=== PATIENT | male | born 1935 | race Caucasian/White ===

== ENCOUNTER 2017-03-02 06:23 | Observation (INO) | payer MEDICARE, OTHER ==
[~2017-03-02] VITALS: Ht 172.7 cm; Wt 88.9 kg
[2017-03-02 07:08] LABS: BASOPHILS 0.4 % (0.0-2.0); EOSINOPHILS 1.9 % (0-7); HEMATOCRIT 42.9 % (42.0-54.0); HEMOGLOBIN 14.6 g/dL (13.5-17.5); IMMATURE GRANULOCYTES 0.1 % (0-5); LYMPHOCYTES 23.2 % (15-50); MCH 31.3 pg (26.0-34.0); MCV 91.9 fL (80.0-100.0); MEAN PLATELET VOLUME 10.7 fL (7.4-10.4); MONOCYTES 8.6 % (2-11); NEUTROPHILS 65.8 % (40-80); PLATELET COUNT 162 10x3/uL (130-400); RBC 4.67 10x6/uL (4.20-6.10); RDW 12.4 % (11.5-14.5); WBC 8.3 10x3/uL (4.8-10.8)
[2017-03-02 07:38] LABS: ALBUMIN 3.8 g/dL (3.4-5.0); ANION GAP 13.2 mmol/L (8-16); CALCIUM 9.6 mg/dL (8.5-10.1); CARBON DIOXIDE 26.8 mmol/L (21.0-32.0); CREATININE - SERUM 1.5 mg/dL (0.6-1.3); PROTEIN - SERUM 6.7 g/dL (6.4-8.2)
[2017-03-02 07:47] LABS: THYROID STIMULATING HORMONE 0.35 uIU/mL (0.36-3.74)
[2017-03-02 07:55] LABS: CREATINE KINASE 178 UL (21-232); PRO BNP 420 pg/mL (0-450)
[2017-03-02 07:56] LABS: TROPONIN-I < 0.017 ng/mL (0.000-0.060)
--- NOTE | 2017-03-02 09:58 | NUR ---
0955-RECEIVED VIA WHEELCHAIR TO ROOM FOR THE ED WITH SALINE LOCK SEEN TO LEFT WRIST AREA. DENIES ANY SOB, CHEST PAIN, OR DIZZINESS. WILL ADMIT.
[2017-03-02 10:02] VITALS: BP 168/87; Ht 172.7 cm; Wt 88.9 kg
--- NOTE | 2017-03-02 10:29 | NUR ---
HEART MONITOR PLACED ON PAITENT ORDERED.
[2017-03-02 11:24] VITALS: BP 145/75
--- NOTE | 2017-03-02 12:34 | NUR ---
PATIENT'S TO DROP OFF HIS GLASSES, DENTURES, AND CELL PHONE. I ASKED HIM IF WE HAD A COPY OF THE MEDICATIONS TO BE PLACED INTO THE COMPUTER. HE CALLED HER AND SHE WILL CALL ME BACK WHEN SHE GETS HOME.
[2017-03-02] MEDS ORDERED: LEVOTHYROXINE125 MCG PO (13:32)
[2017-03-02] MEDS ORDERED: NORVASC5 MG PO (13:34)
[2017-03-02] MEDS ORDERED: ZOCOR40 MG PO (13:34)
[2017-03-02] MEDS ORDERED: ZEMPLAR1 MCG PO (13:34)
[2017-03-02] MEDS ORDERED: ZETIA10 MG PO (13:35)
[2017-03-02 15:25] VITALS: BP 140/77
--- NOTE | 2017-03-02 15:53 | NUR ---
DENIES NEEDS AT PRESENT TIME. WATCHING TV. WILL CONTINUE TO MONITOR.
[2017-03-02 19:00] VITALS: BP 146/84
--- NOTE | 2017-03-02 19:26 | NUR ---
ASSESSMENT COMPLETE, A&O, IROQUOIS. RESPERATIONS EVEN ON ROOM AIR. IV TO LEFT WRIST WITH D5 LR INFUSING AT 100, SITE CLEAN AND DRY. PT DENIES PAIN OR NEEDS, BED LOW, CL IN REACH.
--- NOTE | 2017-03-02 21:41 | NUR ---
HS MEDS GIVEN, PT STATED THAT HE TAKES ALL OF HIS MEDICATIONS AT BED TIME, CALL PLACED TO GEOVANNA IN PHARMACY ASKING IF HE CAN CHANGE ALL OF HIS MEDICATIONS, EXCEPT THE SYNTHROID TO PM DOSES INSTEAD OF AM DOSES.
[2017-03-03 00:34] VITALS: BP 135/79
--- NOTE | 2017-03-03 02:18 | NUR ---
RESTING WITH EYES CLOSED, RESPERATIONS EVEN, NO S/S DISTRESS NOTED.
[2017-03-03 04:00] VITALS: BP 117/70
[2017-03-03 05:41] LABS: BASOPHILS 0.5 % (0.0-2.0); EOSINOPHILS 3.9 % (0-7); HEMATOCRIT 39.4 % (42.0-54.0); HEMOGLOBIN 12.9 g/dL (13.5-17.5); IMMATURE GRANULOCYTES 0.2 % (0-5); LYMPHOCYTES 20.5 % (15-50); MCH 30.6 pg (26.0-34.0); MCHC 32.7 g/dL (31.0-37.0); MCV 93.6 fL (80.0-100.0); MEAN PLATELET VOLUME 10.7 fL (7.4-10.4); MONOCYTES 11.5 % (2-11); NEUTROPHILS 63.4 % (40-80); PLATELET COUNT 178 10x3/uL (130-400); RBC 4.21 10x6/uL (4.20-6.10); RDW 12.7 % (11.5-14.5)
[2017-03-03 06:16] LABS: CALC OSMOLALITY 283 mosm/kg (275-300); CALCIUM 8.5 mg/dL (8.5-10.1); CARBON DIOXIDE 25.5 mmol/L (21.0-32.0); CHLORIDE - SERUM 107 mmol/L (98-107); CREATININE - SERUM 1.3 mg/dL (0.6-1.3); GLUCOSE 90 mg/dL (74-106); PRO BNP 425 pg/mL (0-450); SODIUM 141 mmol/L (136-145); UREA NITROGEN 20 mg/dL (7-18); eGFR NON AFRICAN AMERICAN 56 mL/min (90-120)
[2017-03-03 06:17] LABS: TROPONIN-I < 0.017 ng/mL (0.000-0.060)
[2017-03-03 06:23] LABS: WBC 5.7 10x3/uL (4.8-10.8)
--- NOTE | 2017-03-03 07:00 | NUR ---
PT SITTING UP IN BED DENIES NEEDS WILL CONT TO MONITOR
[2017-03-03 07:49] VITALS: BP 131/69
--- NOTE | 2017-03-03 09:27 | NUR ---
DC PT PIV IN LEFT FA WITH CATH TIP INTACT AND PT TELE AND RETURNED TO DERRICK WORKER. WAITING ON DC PAPERWORK THEN WILL DC PT HOME WITH .
--- NOTE | 2017-03-03 09:38 | NUR ---
WENT OVER DC INSTRUCTIONS WITH PT PT VERBALIZES UNDERSTANDING. PT READY TO GO. CALLED FOR WHEELCHAIR TO TAKE PT DOWNSTAIRS TO FRONT ENTRANCE TO MEET AT CAR
== END 2017-03-03 10:07 | disposition home or self-care (01) ==
LOC: D.ER 06:23 → D.M2 08:59 → OBSVTIME 08:59 → D.M2 03-03 10:07
PROVIDERS: Emergency Medicine; ADMIT Family Medicine
DX: R55 Syncope and collapse (principal); E86.0 Dehydration

== ENCOUNTER → 2017-05-21 08:29 | Outpatient (CLI) | payer MEDICARE, OTHER ==
[2017-03-02 10:02] VITALS: BMI 27.1
[~2017-05-21 08:29] MED LIST: LEVOTHYROXINE125 MCG PO; NORVASC5 MG PO; ZEMPLAR1 MCG PO; ZETIA10 MG PO; ZOCOR40 MG PO
== END | disposition home or self-care (01) ==
LOC: D.MRI 08:29
DX: G45.9 Transient cerebral ischemic attack, unspecified (principal)

== ENCOUNTER 2017-06-17 06:07 | Day surgery (SDC) | payer MEDICARE, OTHER ==
[2017-06-16 12:18] LABS: BASOPHILS 0.9 % (0-2); HEMATOCRIT 42.1 % (42.0-54.0); HEMOGLOBIN 14.1 g/dL (13.5-17.5); IMMATURE GRANULOCYTES 0.4 % (0-5); LYMPHOCYTES 26.1 % (15-50); MCH 31.3 pg (26.0-34.0); MCHC 33.5 g/dL (31.0-37.0); MCV 93.6 fL (80.0-100.0); MONOCYTES 12.3 % (2-11); NEUTROPHILS 54.3 % (40-80); PLATELET COUNT 200 10x3/uL (130-400); RDW 12.9 % (11.5-14.5); WBC 4.6 10x3/uL (4.8-10.8)
[2017-06-16 12:29] LABS: APTT 27.5 SECONDS (22.8-39.4)
[2017-06-16 12:32] LABS: ANION GAP 10.2 mmol/L (8-16); CALCIUM 8.8 mg/dL (8.5-10.1); CARBON DIOXIDE 30.3 mmol/L (21.0-32.0); CREATININE - SERUM 1.5 mg/dL (0.6-1.3); POTASSIUM - SERUM 4.5 mmol/L (3.5-5.1)
[~2017-06-17] VITALS: Ht 170.2 cm; Wt 83.9 kg
[~2017-06-17 06:07] MED LIST changes: +ASPIRIN EC81 M1 PO
[2017-06-17 11:39] VITALS: BP 164/88; Ht 170.2 cm; Wt 83.9 kg
--- NOTE | 2017-06-17 15:19 | NUR ---
1450- PT BACK TO ROOM. HOB ELEVATED. AT BEDSIDE. VSS. WILL CONTINUE TO MONITOR. FULL LIQUIDS OFFERED. 1505- TOLERATING FULL LIQUIDS.
--- NOTE | 2017-06-17 17:02 | NUR ---
1525- UP TO BR, VOIDED WITHOUT DIFFICULTY. 1530- IV D/C'D, PT TOLERATED. CATHETER INTACT. 1545- DISCHARGE INSTRUCTIONS COMPLETED, PT VERBALIZED UNDERSTANDING. PAPER WORK SIGNED. 1550- PT DISCHARGED VIA WHEELCHAIR WITH .
--- NOTE | 2017-06-18 08:48 | OP ---
PATIENT NAME: NEWTON GARZA MEDICAL RECORD: [id number] :37 LOCATION:D.FORMERLY [facility] ADMISSION DATE: SURGEON: KLAUS JAIN MD DATE OF OPERATION: 06/17/2017 SURGEON: Klaus Jain MD ANESTHESIA: General anesthesia by Dr. Klaus Charlton. PREOPERATIVE DIAGNOSIS: Elevated PSA 12.34 with a hard nodule palpable on the left lateral prostatic lobe on rectal examination. PROCEDURE: Transrectal ultrasound and prostate biopsy. FINDINGS: 16.7 grams prostate, no hypoechoic areas. SPECIMENS: Prostate biopsy cores. ESTIMATED BLOOD LOSS: None. CLINICAL HISTORY: This is an 82-year-old male, who comes originally from [facility]. He was referred to me with an elevated PSA of 12.34. He does have normal sexual function and he is continent. There is no family history of prostate cancer. His father did have BPH and he required a TURP. His father lived into his 90s. On rectal examination, a hard nodule irregular in shape can be palpated in the left lobe of the prostate. He comes now to have a prostate biopsy. He has been taking Bactrim prophylaxis 2 days prior to the procedure. He also had a Fleet enema last night. Today, we gave him Ancef 2 grams and gentamicin 40 mg IV transportation dispatch manager to the OR. DESCRIPTION OF PROCEDURE: The patient was given induction of general anesthesia. We then placed him in the dorsal lithotomy position and prepped him. The transrectal ultrasound probe was placed into the rectum. Prostate size measurements were obtained. The prostate is relatively small. No hypoechoic areas were seen. A sextant biopsy was obtained. The prostate was divided into 6 sectors. There was the right and left sides and then each side had the apex, mid and basal sectors. From each sector, we obtained at least 3 cores of good tissue using a 21-gauge biopsy gun. Once we had sufficient specimens, the procedure was terminated. The patient was awakened and brought to the recovery room. I will see him in followup in 1-2 weeks' time to review the pathology with him. TRANSINT:[id number] Voice Confirmation ID: [id number] DOCUMENT ID: [id number] KLAUS JAIN MD at 0848 CC: [id number] DICTATION DATE: 06/17/17 142 AUTOMOTIVE WARRANTY ADMINISTRATOR: 06/17/171915 [facility] 06/17/17 [facility] [address] [id number]
== END 2017-06-17 15:50 | disposition home or self-care (01) ==
LOC: D.OPS 06:07 → D.PAN 11:15 → D.OPS 11:45
PROVIDERS: Anesthesiology
DX: N40.2 Nodular prostate without lower urinary tract symptoms (principal); R97.20 Elevated prostate specific antigen [PSA]; I10 Essential (primary) hypertension; Z01.812 Encounter for preprocedural laboratory examination

== ENCOUNTER → 2017-06-29 18:41 | Outpatient (CLI) | payer MEDICARE, OTHER ==
[2017-06-17 11:39] VITALS: BMI 29.0
[2017-06-29 20:29] LABS: APPEARANCE CLEAR (CLEAR); BILIRUBIN NEGATIVE (NEGATIVE); COLOR DK YELLOW (YELLOW); GLUCOSE NEGATIVE (NEGATIVE); KETONE NEGATIVE (NEGATIVE); LEUKOCYTE ESTERASE NEGATIVE (NEGATIVE); NITRITE NEGATIVE (NEGATIVE); PROTEIN NEGATIVE (NEGATIVE); UROBILINOGEN NORMAL (NORMAL)
[2017-06-29 20:32] LABS: BACTERIA FEW /hpf (NONE SEEN); WHITE CELLS - URINE 0-5 /hpf (0-5)
== END | disposition home or self-care (01) ==
LOC: D.LABREF 18:41
PROVIDERS: Urology
DX: R31.9 Hematuria, unspecified (principal)

== ENCOUNTER → 2017-07-01 09:19 | Outpatient (CLI) | payer MEDICARE, OTHER ==
[2017-06-17 11:39] VITALS: BMI 29.0
== END | disposition home or self-care (01) ==
LOC: D.NM 09:19
DX: C25.9 Malignant neoplasm of pancreas, unspecified (principal)

== ENCOUNTER → 2017-07-29 06:49 | Outpatient (CLI) | payer MEDICARE, OTHER | END | disposition home or self-care (01) | LOC: D.CATH 06:49 | DX: R55 Syncope and collapse (principal); R00.1 Bradycardia, unspecified; I10 Essential (primary) hypertension; Z01.812 Encounter for preprocedural laboratory examination ==

== ENCOUNTER → 2017-08-10 08:46 | Outpatient (CLI) | payer MEDICARE, OTHER ==
[2017-07-29 07:21] VITALS: BMI 28.4
--- NOTE | ~2017-08-10 | EC ---
PATIENT:NEWTON GARZA DATE OF SERVICE: 08/10/17 SEX: M MEDICAL RECORD: [id number] DATE OF : 37 LOCATION:[facility] AGE OF PATIENT: 82 ADMISSION DATE: 08/10/17 REFERRING PHYSICIAN: INTERPRETING PHYSICIAN: KHALIDA PUGA MD ECHOCARDIOGRAM REPORT ECHO CHARGES 4 ECHO COMPLETE CLINICAL DIAGNOSIS: HTN/BRADYCARDIA ECHOCARDIOGRAPHIC MEASUREMENTS (adult normal given) AC root (d.<3.7cm) 3.5 cm LV Septum d (<1.2 cm> 1.5 cm Valve Excursion 1.7 cm LV Septum (systole) 1.8 cm Left Atria (s.<4.0cm> 3.8 cm LVPW d(<1.2cm) 1.2 cm RV (d.<2.3cm) 3.7 cm LVPW (sytole) 1.6 cm LV diastole(<5.6CM) 5.7 cm MV E-F(>70mm/sec) cm LV systole 4.3 cm LVOT Diameter 2.2 cm MV exc.(>10mm) 1.7 cm Est.ejection fraction (50-75%) % Pericardial Effusion N DOPPLER: LVIT cm/sec A 74.0 cm/sec E 67.0 cm/sec LA cm/sec RVSP 38 mmHg LVOT 96 cm/sec AOP1/2T m/s Asc. Ao 130 cm/sec RVOT 64 cm/sec RA cm/sec PA 105 cm/sec AV Gradient Peak 6.77 mmHg AV Mean 2.96 mmHg AV Area 1.9 cm MV Gradient Peak 2.26 mmHg MV Mean 0.91 mmHg MV Area cm COMMENTS: Label Paster: Denae NEWELL Child Day Care Teacher: Alexx Puga TAPE# PACS DATE OF SERVICE: 08/10/2017 PROCEDURE: Transthoracic echocardiogram. FINDINGS: 1. The left ventricle is shown to have moderate concentric left ventricular hypertrophy with preserved left ventricular function with an ejection fraction of 60%. 2. The inflow characteristics across the mitral valve indicate diastolic dysfunction. ECHOCARDIOGRAM REPORT [id number] NEWTON GARZA 3. The mitral valve has mild mitral regurgitation, but structurally is grossly normal. 4. The left atrium is shown to be in the upper limits of normal size and normal function. 5. The right atrium has moderate dilatation. 6. The right ventricle has mild dilatation with normal function. 7. The tricuspid valve is shown to have mild tricuspid regurgitation with an estimated right ventricular systolic pressure of 30 mmHg to 35 mmHg. 8. The pulmonic valve, although not well visualized, is structurally normal. 9. The pericardium is normal. 10. The IVC is shown to be of normal size and collapses normally. IMPRESSION: The patient has evidence of hypertensive heart disease as well as mild right ventricular hypertrophy and dilatation and mild elevations in right-sided pressures. No significant valvular abnormalities. TRANSINT:[id number] Voice Confirmation ID: [id number] DOCUMENT ID: [id number] KHALIDA PUGA MD CC: [id number] DICTATION DATE: 08/10/17 1544 AUTO BODY REPAIRER: 08/10/[address] [facility] [address] [place] [address]
== END | disposition home or self-care (01) ==
LOC: D.ECHO 08:46
DX: I10 Essential (primary) hypertension (principal); R00.1 Bradycardia, unspecified

== ENCOUNTER → 2017-08-23 06:34 | Outpatient (CLI) | payer MEDICARE, OTHER ==
--- NOTE | ~2017-08-23 | HEMODYNAMI ---
PATIENT:NEWTON GARZA MEDICAL RECORD: [id number] : 37 LOCATION:[facility] ADMISSION DATE: 08/23/17 Generatedon:08/23/20179:23 Patient name: NEWTON GARZA Patient #: [id number] SSN : : 1935 Date of study: 08/23/2017 Page: Of Hemodynamic Procedure Report Patient Data Patient Demographics Procedure consent was obtained First Name: NEWTON Gender: Male Last Name: GREG : 1935 Patient #: [id number] Age: 82 year(s) Race: Unknown Additional ID: [id number] Contact details [address]: [address] [place] [address] State: [place] City: [place] Zip code: [address] Past Medical History Allergies: No known allergies Admission Admission Data Admission Date: 08/23/2017 Admission Time: 6:34 Lab Results Lab Result Date: 08/23/2017 Lab Result Time: 0:00 Biochemistry Name Units Result Min Max Creatinine mg/dl 1.6 --(----)-* 0.6 1.3 CBC Name Units Result Min Max Hemoglobin g/dl 14.2 --(*---)-- 13.5 17.5 Procedure Procedure Types Cath Procedure Diagnostic Procedure [facility] Coronaries only PCI Procedure Coronary Stent Initial Miscellaneous Procedures Moderate Sedation up to 30 minutes Procedure Description Procedure Date Procedure Date: 08/23/2017 Procedure Start Time: 8:49 Procedure End Time: 9:16 Procedure Staff Name Function Austin Valero MD Performing Physician Bentley Juarez RN Nurse Sara Conroy RT Monitor Gregory Casas RT Scrub Procedure Data Cath Procedure Fluoroscopy Diagnostic fluoroscopy Total fluoroscopy Time: 8.3 time: 8.3 min min Contrast Material Contrast Material Type Amount (ml) Isovue 300 85 Entry Location Entry Primary Successful Side Size Upsize Upsize Entry Closure Succes sful Closure Location (Fr) 1 (Fr) 2 (Fr) Remarks Device Remarks Radial Right 6 Fr Exoseal artery Short Estimated blood loss: 10 ml Diagnostic catheters Device Type Used For End Catheter Placement Terumo 5Fr Juanjose 110cm Left Coronary catheter Angiography Terumo 5Fr Juanjose 110cm Right Coronary catheter Angiography Procedure Complications No complications Procedure Medications Medication Administration Route Dosage 0.9% NaCl I.V. 100 ml/hr Oxygen NC 2 l/min Heparin Flush Bag added to field 2 bags (1000units/500ml NS) Lidocaine 2% added to field 20 Radial Cocktail added to field 1 syringe (Verapomil 2mg/Nitro 400mcg/Heparin 1500units) Versed I.V. 1 mg Fentanyl I.V. 25 mcg Radial Cocktail I.A. 1 syringe (Verapomil 2mg/Nitro 400mcg/Heparin 1500units) Angiomax (bolus) I.V. 12 ml Angiomax Drip I.V. drip 28 ml/hr (250mg/50ml NS) (Standard) Plavix P.O. 300 mg Hemodynamics Rest HGB: 14.2 (g/dl) Heart Rate: 66 (bpm) Snapshots Pre Cath Intra NCS Post Cath Vital Signs Time Heart Resp SPO2 etCO2 [id number] NIBP (mmHg) Rhythm Pain Sedation Rate (ipm) (%) (mmHg) (mmHg) Status Level (bpm) 8:32:27 66 16 100 0 0 164/112(137) NSR 0 (11) 10(A) , No pain 8:37:13 65 14 99 0 0 156/109(139) NSR 0 (11) 10(A) , No pain 8:41:58 65 13 99 0 0 153/94(119) NSR 0 (11) 10(A) , No pain 8:46:43 63 10 99 0 0 155/87(113) NSR 0 (11) 10(A) , No pain 8:51:25 61 17 99 0 0 153/94(120) NSR 0 (11) 9(A) , No pain 8:56:04 68 16 94 0 0 119/77(91) NSR 0 (11) 9(A) , No pain 9:00:41 65 18 95 0 0 124/76(95) NSR 0 (11) 9(A) , No pain 9:05:17 63 13 96 0 0 128/79(95) NSR 0 (11) 9(A) , No pain 9:09:56 61 10 98 0 0 126/76(93) NSR 0 (11) 9(A) , No pain 9:14:32 61 18 0 0 121/81(99) NSR 0 (11) 10(A) , No pain Medications Time Medication Route Dose Verified Delivered Reason Notes Effectiveness by by 8:31:29 0.9% NaCl I.V. 100 Bentley Bentley Per physician ml/hr Ann Juarez RN RN 8:31:43 Oxygen NC 2 l/min Bentley Bentley Per physician Ann Juarez RN RN 8:32:00 Heparin Flush added 2 bags Bentley Bentley used for Bag to Ann Juarez procedure (1000units/500ml field RN RN NS) 8:32:15 Lidocaine 2% added 20ml Bentley Bentley for local to vial Lorigan Ann anesthetic RN RN 8:32:38 Radial Cocktail added 1 Bentley Bentley used for (Verapomil to syringe Ann Juarez procedure 2mg/Nitro RN RN 400mcg/Heparin 1500units) 8:48:12 Versed I.V. 1 mg Bentley Bentley for sedation Ann Juarez RN RN 8:48:30 Fentanyl I.V. 25 mcg Bentley Bentley for sedation Ann Juarez RN RN 8:51:50 Radial Cocktail I.A. 1 Bentley Austin for (Verapomil syringe Ann Norred MD vasodilation 2mg/Nitro RN 400mcg/Heparin 1500units) 9:10:16 Angiomax (bolus) I.V. 12 ml Bentley Bentley for Ann Juarez anticoagulation RN RN 9:10:44 Angiomax Drip I.V. 28 Bentley Bentley for (250mg/50ml NS) drip ml/hr Ann Juarez anticoagulation (Standard) RN RN 9:21:57 Plavix P.O. 300 mg Bentley Bentley for Ann Juarez antiplatelet RN RN therapy Procedure Log Time Note 8:16:36 Sara Conroy RT(R) sent for patient. Start room use. 8:16:37 Time tracking: Regular hours 8:16:40 Plan of Care:Hemodynamics will remain stable., Cardiac rhythm will remain stable., Comfort level will be maintained., Respiratory function will remain adequate., Patient/ family verbilizes understanding of procedure., Procedure tolerated without complication., Recovers from procedure without complications.. 8:25:07 Patient received from Pre/Post Procedure Room to CCL 1 Alert and oriented. Tansferred to table in Supine position. 8:25:08 Warm blankets applied, and rachelle hugger turned on for patient comfort. 8:25:09 Correct patient and procedure confirmed by team. 8:25:11 Signed procedure consent form obtained from patient. 8:25:12 ECG and BP/O2 sat monitors applied to patient. 8:25:24 H&P Date Dictated: 08/17/2017 Within 30 days and on chart., H&P Addendum completed by physician on day of procedure. (MUST COMPLETE FOR ALL OUTPATIENTS). 8:25:25 Pre-procedure instructions explained to patient. 8:25:26 Pre-op teaching completed and patient verbalized understanding. 8:25:29 Family in waiting room. 8:25:30 Patient NPO since Midnight. 8:25:38 Patient allergic to No known allergies 8:25:41 Is the patient allergic to Iodine/contrast media? No. 8:30:55 Vital chart was started 8:31:29 0.9% NaCl 100 ml/hr I.V. was administered by Bentley Juarez RN; Per physician; 8:31:43 Oxygen 2 l/min NC was administered by Bentley Juarez RN; Per physician; 8:32:00 Heparin Flush Bag (1000units/500ml NS) 2 bags added to field was administered by Bentley Juarez RN; used for procedure; 8:32:15 Lidocaine 2% 20ml vial added to field was administered by Bentley Juarez RN; for local anesthetic; 8:32:38 Radial Cocktail (Verapomil 2mg/Nitro 400mcg/Heparin 1500units) 1 syringe added to field was administered by Bentley Juarez RN; used for procedure; 8:33:49 Is patient on blood thinner?Yes 8:33:54 ACC The patient was administered the following blood thiners within the last 24 hours: ACCPlavix 8:34:13 Plavix 300mg given this AM. 8:34:15 Patient diabetic? No. 8:34:19 Previous problem with sedation/anesthesia? No ? 8:34:21 Snore? No 8:34:22 Sleep apnea? No 8:34:23 Deviated septum? No 8:34:24 Opens mouth fully? Yes 8:34:25 Sticks out tongue? Yes 8:34:27 Airway obstruction? No ? 8:34:32 Dentures? Yes IN 8:34:36 Pre procedure: right dorsailis pedis pulse 2+ Normal; easily identifiable; not easily obliterated 8:34:39 Modified Cameron's test Ulnar < 7 seconds 8:34:42 Patient pain scale 0/10 ?. 8:35:19 IV patent on arrival in left hand with 0.9% NaCl at [facility]. 8:36:02 Lab Result : Creatinine 1.6 mg/dl 8:36:02 Lab Result : Hemoglobin 14.2 g/dl 8:36:05 Lab results completed and on chart. 8:36:09 Right Radial & Right Groin area was prepped with chlora-prep and draped in sterile fashion 8:36:10 Alarms reviewed by R. N. 8:36:11 Sharps counted by scrub and verified by R.N. 8:36:15 Use device set Radial Dx 8:36:16 Acist Syringe opened to sterile field. 8:36:16 Medline Cath Pack opened to sterile field. 8:36:17 Bag Decanter opened to sterile field. 8:36:17 Terumo 6Fr Slender Glidesheath opened to sterile field. 8:36:17 St Sean 260cm J .035 wire opened to sterile field. 8:36:17 Acist Hand Control opened to sterile field. 8:36:18 Acist Manifold opened to sterile field. 8:36:18 Tegaderm 4 x 4 opened to sterile field. 8:36:18 MBrace Wrist Support opened to sterile field. 8:38:12 Rhythm: sinus rhythm 8:38:14 Baseline sample Acquired. 8:38:15 Full Disclosure recording started 8:41:17 Final Timeout: patient, procedure, and site verified with staff and physician. All members of the team are in agreement. 8:41:22 Right Radial site verified by team. 8:41:24 Physical assessment completed. ASA score P 2 - A patient with mild systemic disease as per Austin Valero MD. 8:41:27 Sedation plan: IV Moderate Sedation Versed, Fentanyl 8:48:12 Versed 1 mg I.V. was administered by Bentley Juarez RN; for sedation; 8:48:30 Fentanyl 25 mcg I.V. was administered by Bentley Juarez RN; for sedation; 8:49:48 Procedure started. 8:49:55 Local anesthetic to right radial artery with Lidocaine 2% by Austin Valero MD.INITIAL ACCESS ONLY 8:50:02 A 6 Fr Short sheath was inserted into the Right Radial artery 8:50:24 Zero performed for pressure channel P1 8:51:41 A Terumo 5Fr Juanjose 110cm catheter was advanced over the wire and used for Left Coronary Angiography. 8:51:50 Radial Cocktail (Verapomil 2mg/Nitro 400mcg/Heparin 1500units) 1 syringe I.A. was administered by Austin Valero MD; for vasodilation; 8:54:03 Terumo ANGLE 260cm glide wire opened to sterile field. 8:54:51 Exchange glide wire advanced. 9:00:02 A Terumo 5Fr Juanjose 110cm catheter was advanced over the wire and used for Right Coronary Angiography. 9:03:24 SproutBoxW [place] II J-Tip 190cm wire opened to sterile field. 9:03:24 Shot Stats BasixCompak Inflation Kit opened to sterile field. 9:03:25 Medtronic Launcher 6Fr AR 1.0 guide catheter opened to sterile field. 9:03:37 Copilot Bleedback Control Valve opened to sterile field. 9:04:20 6 Fr AR 1.0 guide catheter was inserted over the wire 9:08:13 BMW wire advanced. 9:10:16 Angiomax (bolus) 12 ml I.V. was administered by Bentley Juarez RN; for anticoagulation; 9:10:44 Angiomax Drip (250mg/50ml NS) (Standard) 28 ml/hr I.V. drip was administered by Bentley Juarez RN; for anticoagulation; 9:11:38 Inflation Number: 1 A Slade RX 3.5 x 18 stent was prepped and advanced across the Mid RCA. The stent was deployed at 16 ANIBAL for 0:26 (min:sec). 9:12:33 Stent catheter was removed intact over wire. 9:12:33 Wire removed. 9:12:34 Guide catheter removed. 9:12:55 Sheath removed intact; hemostasis achieved with Exoseal to the Right Radial artery. 9:12:57 Procedure ended.(Physican Out) 9:13:06 Fluoroscopy time 08.30 minutes. 9:13:22 Contrast amount:Isovue 300 85ml. 9:13:23 Sharps counted by scrub and verified by R.N. 9:13:25 TR band inflated with 12cc of air. 9:13:26 Insertion/operative site no bleeding no hematoma. 9:13:32 Post right radial artery:stable, clean and dry 9:13:34 Post Procedure Pulses reassessed and unchanged 9:13:37 Post-procedure physical assessment completed. ASA score P 2 - A patient with mild systemic disease as per Austin Valero MD. 9:13:40 Post procedure rhythm: unchanged. 9:13:43 Estimated blood loss: 10 ml 9:13:45 Post procedure instruction explained to patient.Patient verbalizes understanding. 9:13:47 Patient needs reinforcement of post procedure teaching. 9:14:02 Procedure type changed to Cath procedure, Diagnostic procedure, LHC, Coronaries only, PCI procedure, Coronary Stent Initial, Miscellaneous Procedures, Moderate Sedation up to 30 minutes 9:14:08 Procedure Complication : No complications 9:14:14 See physician's report for complete and final results. 9:14:30 Terumo TR Band Standard opened to sterile field. 9:16:24 Procedure and supply charges have been captured, reviewed, submitted and are correct. 9:16:25 Vital chart was stopped 9:21:57 Plavix 300 mg P.O. was administered by Bentley Juarez RN; for antiplatelet therapy; 9:22:20 Report given to Pre/Post Procedure Room. 9:22:23 Patient transfered to Pre/Post Procedure Room with Stretcher. 9:22:33 End room use (Document Last) Intervention Summary Intervention Notes Time ActionType Lesion and Equipment Action# Pressure Duration Attributes Used 9:11:38 Place stent Mid RCA Yoakum RX 1 16 00:26 3.5 x 18 stent Device Usage Item Name Manufacture Quantity Catalog Hospital Part Current Minim al Lot# / Number Charge Number Stock Stock Serial# Code Acist Acist 1 30152 416886 360103 622986 20 Apogee Photonics Medical [employer] Inc Medline Cardinal 1 [id number] 463360 95383 470389 5 Cath Pack Health Bag Microtek 1 2001S 127384 35703 562923 5 Decanter Medical Inc. Terumo 6Fr Terumo 1 [id number] 838076 173633 119557 [address] Sean 1 872877 711336 546502 187089 30 260cm J .035 wire Acist Hand Acist 1 23257 980676 157971 482317 5 Control Medical Systems Inc Acist Acist 1 42147 283298 520285 897660 5 Manifold Medical Systems Inc Tegaderm 4 3M 1 [id number] 602063 578353 601987 5 x 4 MBrace Advanced 1 140-0250-00 114275 70646 148036 5 Wrist Vascular Support Dynamics Terumo 5Fr Terumo 1 40-9713 986140 527474 048784 5 Juanjose 110cm catheter Terumo Terumo 1 [id number] 689464 819541 534890 5 ANGLE 260cm glide wire Lima BMW [place] 1 [id number] 584333 66328 289890 5 [place] Vascular II J-Tip 190cm wire Merit Merit 1 [id number] 294530 534902 291896 15 BasixCompak Medical Inflation Kit Medtronic Medtronic 1 [id number] 990740 43262 259258 1 Launcher 6Fr [place] 1.0 guide catheter Copilot [place] 1 2006189 228986 715461 836652 5 Bleedback Vascular Control Valve Yoakum RX 3.5 Medtronic 1 [id number] 834029 5098089 763151 5 [id number] x 18 stent Terumo TR Terumo 1 [id number] 130501 062800 446920 40 Band Standard Signature Audit [place] Stage Time Signature Unsigned Intra-Procedure 08/23/2017 Sara 9:23:18 AM Counts RT(R) Signatures Monitor : Sara Signature : Counts RT Date : Time : [facility] [address] [place] [address]
[~2017-08-23 06:34] MED LIST changes: +PLAVIX75 MG PO
[2017-08-23 07:09] VITALS: BP 143/78; BMI 26.8
[2017-08-23 07:13] LABS: BASOPHILS 0.8 % (0-2); EOSINOPHILS 5.7 % (0-7); HEMOGLOBIN 14.2 g/dL (13.5-17.5); IMMATURE GRANULOCYTES 0.2 % (0-5); LYMPHOCYTES 23.2 % (15-50); MCH 31.1 pg (26.0-34.0); MCV 94.1 fL (80.0-100.0); MEAN PLATELET VOLUME 10.2 fL (7.4-10.4); MONOCYTES 12.1 % (2-11); PLATELET COUNT 163 10x3/uL (130-400); RBC 4.57 10x6/uL (4.20-6.10); RDW 12.9 % (11.5-14.5); WBC 4.9 10x3/uL (4.8-10.8)
[2017-08-23 07:22] LABS: ANION GAP 9.4 mmol/L (8-16); CALCIUM 9.5 mg/dL (8.5-10.1); CARBON DIOXIDE 29.9 mmol/L (21.0-32.0); CREATININE - SERUM 1.6 mg/dL (0.6-1.3); POTASSIUM - SERUM 4.3 mmol/L (3.5-5.1)
--- NOTE | 2017-08-23 09:30 | NUR ---
0930 RECIEVED TO ROOM VIA STRETCHER FROM [employer]DLES [facility]ANGER WITH REPORTS OF ONE STENT TO THE RCA. TR BAND TO R/WRIST CDI NO BLEEDING NO HEMATOMA NOTED. DR PUGA PRESENT TO SPEAK WITH PATIENT. VSS
--- NOTE | 2017-08-23 10:02 | NUR ---
RESTING QUIETLY WITH CHEST PAIN DENIED TR BAND TO R/WRIST CDI NO BLEEDING NO HEMATOMA NOTED. VSS
--- NOTE | 2017-08-23 10:13 | NUR ---
REPOSITIONED TO SITTING WITH HOB UP 30 DEGREES. SANDWICH AND COFFEE TO BEDSIDE CHEST PAIN DENIED. TR BAND REMAINS CDI
--- NOTE | 2017-08-23 10:41 | NUR ---
WATCHING TV IN ROOM WITH AT SIDE VOICED NO PAIN OR NEEDS TR BAND REMAINS TO R/WRIST CDI
--- NOTE | 2017-08-23 11:09 | NUR ---
RESTING QUIETLY NO DISTRESS NOTED TR BAND REMAINS TO R/WRIST CDI NO BLEEDING NO HEMATOMA NOTED. VSS WITH CHEST PAIN DENIED
--- NOTE | 2017-08-23 11:13 | NUR ---
4 CC AIR REMOVED FROM TR BAND NO BLEEDING NO HEMATOMA NOTED 1145 4 CC AIR REMOVED FROM TR BAND NO BLEEDING NO HEMATOMA NOTED.
--- NOTE | 2017-08-23 12:00 | NUR ---
1200 4 CC AIR REMOVED FROM TR BAND NO BLEEDING NO HEMATOMA NOTED. PATIEN UP TO GET DRESSED WITH PIV REMOVED AND DRESSING APPLIED. 1230 VSS WITH CHEST PAIN DENIED VERBAL AND WRITTEN DISCHARGE GONE OVER WITH PATIENT AND FAMILY BOTH VERBALIZED UNDERSTANDING. 1245 LEFT VIA WC TO PARKING FOR TRANSPORT HOME NO DISTRESS NO CHEST PAIN .
--- NOTE | 2017-08-23 12:02 | NUR ---
4 CC AIR REMOVED FROM TR BAND WITH NO BLEEDING NO HEMATOMA NOTED. VSS
--- NOTE | 2017-08-23 12:05 | NUR ---
2 CC AIR REMOVED FROM TR BAND WITH NO BLEEDING NO HEMATOMA NOTED. VSS
== END | disposition home or self-care (01) ==
LOC: D.CATH 06:34
PROVIDERS: Internal Medicine Cardiovascular Disease
DX: I25.10 Atherosclerotic heart disease of native coronary artery without angina pectoris (principal); R00.1 Bradycardia, unspecified; R07.9 Chest pain, unspecified; I10 Essential (primary) hypertension; R94.30 Abnormal result of cardiovascular function study, unspecified; R06.09 Other forms of dyspnea; Z01.812 Encounter for preprocedural laboratory examination
CPT/HCPCS: 93458; C9600

== ENCOUNTER → 2017-10-14 18:33 | Outpatient (CLI) | payer MEDICARE, OTHER ==
[2017-08-23 07:09] VITALS: BMI 26.8
[2017-10-14 19:34] LABS: CHOL - HDL RATIO 1.6 ratio (2.3-4.9); LDL-HDL RATIO 0.5 ratio (1.5-3.5)
== END | disposition home or self-care (01) ==
LOC: D.LABREF 18:33
PROVIDERS: Internal Medicine Cardiovascular Disease
DX: E78.5 Hyperlipidemia, unspecified (principal)

== ENCOUNTER → 2017-11-01 13:42 | Outpatient (CLI) | payer MEDICARE, OTHER ==
[2017-08-23 07:09] VITALS: BMI 26.8
== END | disposition home or self-care (01) ==
LOC: D.US 13:42
DX: I25.10 Atherosclerotic heart disease of native coronary artery without angina pectoris (principal); I42.9 Cardiomyopathy, unspecified; R09.89 Other specified symptoms and signs involving the circulatory and respiratory systems; R55 Syncope and collapse; E78.00 Pure hypercholesterolemia, unspecified

== ENCOUNTER → 2018-02-02 12:10 | Outpatient (CLI) | payer MEDICARE, OTHER ==
[2017-08-23 07:09] VITALS: BMI 26.8
--- NOTE | ~2018-02-02 | EC ---
PATIENT:NEWTON GARZA DATE OF SERVICE: 02/02/18 SEX: M MEDICAL RECORD: [id number] DATE OF : 37 LOCATION:D.COUNT INCLUDES THE [facility] AGE OF PATIENT: 82 ADMISSION DATE: 02/02/18 REFERRING PHYSICIAN: INTERPRETING PHYSICIAN: KHALIDA PUGA MD ECHOCARDIOGRAM REPORT ECHO CHARGES 4 ECHO COMPLETE CLINICAL DIAGNOSIS: PALPITATIONS/DYSPNEA/SYNCOPE/ CAD ECHOCARDIOGRAPHIC MEASUREMENTS (adult normal given) AC root (d.<3.7cm) 4.0 cm LV Septum d (<1.2 cm> 1.7 cm Valve Excursion 2.4 cm LV Septum (systole) 2.2 cm Left Atria (s.<4.0cm> 4.2 cm LVPW d(<1.2cm) 1.5 cm RV (d.<2.3cm) 2.8 cm LVPW (sytole) 2.1 cm LV diastole(<5.6CM) 5.2 cm MV E-F(>70mm/sec) cm LV systole 3.1 cm LVOT Diameter 2.0 cm MV exc.(>10mm) cm Est.ejection fraction (50-75%) % Pericardial Effusion N DOPPLER: LVIT cm/sec A 45.0 cm/sec E 58.0 cm/sec LA cm/sec RVSP 43.0 mmHg LVOT 83.0 cm/sec AOP1/2T m/s Asc. Ao 114 cm/sec RVOT 60.0 cm/sec RA cm/sec PA 76.0 cm/sec AV Gradient Peak 5.2 mmHg AV Mean 2.8 mmHg AV Area 2.3 cm MV Gradient Peak 2.1 mmHg MV Mean 0.81 mmHg MV Area cm COMMENTS: Informatics Analyst: Braxton JONESOE Rn Cvor: Alexx Puga TAPE# PACS DATE OF SERVICE: 02/02/2018 TRANSTHORACIC ECHOCARDIOGRAM FINDINGS: 1. The left ventricle shows moderate concentric left ventricular hypertrophy with inflow characteristics that are normal. 2. There is mild lateral hypokinesis. The overall ejection fraction is 50%. 3. The left atrium is mildly dilated. 4. The aortic valve is normal. ECHOCARDIOGRAM REPORT [id number] NEWTON GARZA 5. The tricuspid valve has moderate tricuspid regurgitation. RVSP is approximately 35-40 mmHg. 6. The right ventricle is normal. 7. The right atrium has mild dilatation. 8. Pericardium is normal. CONCLUSIONS: The patient has evidence of hypertensive heart disease with mild lateral hypokinesis and mild pulmonary hypertension. TRANSINT:[id number] Voice Confirmation ID: [id number] DOCUMENT ID: [id number] KHALIDA PUGA MD at 0755 CC: [id number] DICTATION DATE: 02/02/18 1627 INSTRUMENT REPAIR SUPERVISOR: 02/02/18 1802 DEP CLI 02/02/18 [id number] [place] [address]
[~2018-02-02 12:10] MED LIST changes: +FLOMAX0.4 MG PO; +KEFLEX500 MG PO; +LEVOTHYROXINE112 MCG PO; +SYNTHROID112 MCG PO; +ZOCOR20 MG PO
== END | disposition home or self-care (01) ==
LOC: D.ECHO 12:10
DX: I25.10 Atherosclerotic heart disease of native coronary artery without angina pectoris (principal); R00.2 Palpitations; R09.89 Other specified symptoms and signs involving the circulatory and respiratory systems; R06.02 Shortness of breath; R55 Syncope and collapse

== ENCOUNTER 2018-02-14 02:06 | Inpatient (IN) | payer MEDICARE, OTHER ==
[~2018-02-14] VITALS: Ht 175.3 cm; Wt 85.0 kg
--- NOTE | ~2018-02-14 | HEMODYNAMI ---
PATIENT:NEWTON GARZA MEDICAL RECORD: [id number] : 37 [facility] [id number] ADMISSION DATE: 02/14/18 Generatedon:02/15/201810:47 Patient name: NEWTON GARZA Patient #: [id number] SSN : : 1935 Date of study: 02/15/2018 Page: Of Hemodynamic Procedure Report Patient Data Patient Demographics Procedure consent was obtained First Name: NEWTON Gender: Male Last Name: GREG : 1935 Patient #: [id number] Age: 82 year(s) Race: Unknown Additional ID: [id number] Contact details [address]: [address] [place] [address] State: [place] City: [place] Zip code: [address] Past Medical History Allergies: No known allergies Admission Admission Data Admission Date: 02/14/2018 Admission Time: 3:58 Admit Source: Other Room #: D.2117 Lab Results Lab Result Date: 02/14/2018 Lab Result Time: 2:15 Biochemistry Name Units Result Min Max BUN mg/dl 28 --(----)-* 7 18 Creatinine mg/dl 1.5 --(----)-* 0.6 1.3 CBC Name Units Result Min Max Hematocrit % 41 -*(----)-- 42 54 Hemoglobin g/dl 13.8 --(*---)-- 13.5 17.5 Procedure Procedure Types Cath Procedure Diagnostic Procedure PPM/ICD PPM Dual Implant Sedation Charges Moderate Sedation up to 30 minutes Procedure Description Procedure Date Procedure Date: 02/15/2018 Procedure Start Time: 10:15 Procedure End Time: 10:46 Procedure Staff Name Function Austin Valero MD Performing Physician Jose Gutiérrez RN Nurse Sintia Koch RT Monitor Gregory Casas RT Scrub Procedure Data Cath Procedure Fluoroscopy Diagnostic fluoroscopy Total fluoroscopy Time: 3.3 time: 3.3 min min Diagnostic fluoroscopy Total fluoroscopy dose: 106 dose: 106 mGy mGy Contrast Material Contrast Material Type Amount (ml) Visipaque 270 10 Estimated blood loss: 10 ml Procedure Complications No complications Procedure Medications Medication Administration Route Dosage Ancef (1Gm/50ml NS) I.V.P.B 1 g Ancef Irrigation Topical 1 g (1gm/500ml NS) Fentanyl I.V. 50 mcg Versed I.V. 1 mg Versed I.V. 1 mg Hemodynamics Rest HGB: 13.8 (g/dl) Heart Rate: 56 (bpm) Snapshots Pre Cath Intra NCS Post Cath Vital Signs Time Heart Resp SPO2 NIBP (mmHg) Rhythm Pain Sedation Rate (ipm) (%) Status Level (bpm) 9:57:45 54 16 94 148/83(131) NSR 0 (11) 10(A) , No pain 10:02:03 53 17 94 144/85(101) NSR 0 (11) 10(A) , No pain 10:06:23 54 16 94 136/75(95) NSR 0 (11) 10(A) , No pain 10:10:29 55 16 94 137/85(119) NSR 0 (11) 10(A) , No pain 10:14:43 55 17 94 143/74(103) NSR 0 (11) 9(A) , No pain 10:18:59 58 16 93 138/78(97) NSR 0 (11) 9(A) , No pain 10:23:11 53 16 93 137/82(124) NSR 0 (11) 9(A) , No pain 10:27:25 55 15 92 135/84(105) NSR 0 (11) 9(A) , No pain 10:31:37 61 16 92 150/85(101) NSR 0 (11) 9(A) , No pain 10:35:55 58 15 92 131/90(104) NSR 0 (11) 9(A) , No pain 10:40:07 62 16 91 149/88(124) NSR 0 (11) 9(A) , No pain 10:44:25 69 16 93 145/88(124) NSR 0 (11) 9(A) , No pain Medications Time Medication Route Dose Verified Delivered Reason Notes Effective ness by by 9:57:33 Ancef I.V.P.B 1 g Austin Pena1Gm/50ml Anjum Gutiérrez RN physician NS) 9:57:40 Ancef Topical 1 g Austin Jose used for Irrigation Anjum Gutiérrez RN procedure (1gm/500ml NS) 10:10:10 Fentanyl I.V. 50 Austin Jose for mcg Anjum Gutiérrez RN sedation 10:10:17 Versed I.V. 1 mg Austin Jose for Anjum Gutiérrez RN sedation 10:23:24 Versed I.V. 1 mg Austin Jose for Anjum Gutiérrez RN sedation Procedure Log Time Note 9:20:30 Jose Gutiérrez RN sent for patient. Start room use. 9:21:49 Informed consent obtained and on chart 9:21:53 Admit Source: Other 9:22:16 Time tracking: Regular hours 9:22:19 Plan of Care:Hemodynamics will remain stable., Cardiac rhythm will remain stable., Comfort level will be maintained., Respiratory function will remain adequate., Patient/ family verbilizes understanding of procedure., Procedure tolerated without complication., Recovers from procedure without complications.. 9:22:29 H&P Date Dictated: 02/14/2018 Within 30 days and on chart.. 9:23:25 Lab Result : Hematocrit 41 % 9:23:25 Lab Result : Hemoglobin 13.8 g/dl 9:23:25 Lab Result : BUN 28 mg/dl 9:23:25 Lab Result : Creatinine 1.5 mg/dl 9:34:34 Patient received from Med II to CCL 3 Alert and oriented. Tansferred to table in Supine position. 9:34:35 Warm blankets applied, and rachelle hugger turned on for patient comfort. 9:34:35 Correct patient and procedure confirmed by team. 9:34:36 ECG and BP/O2 sat monitors applied to patient. 9:34:37 Pre-procedure instructions explained to patient. 9:34:37 Pre-op teaching completed and patient verbalized understanding. 9:34:38 Family in patients room. 9:34:40 Patient NPO since Midnight. 9:34:49 Patient allergic to No known allergies 9:34:51 Is the patient allergic to Iodine/contrast media? No. 9:39:44 IV patent on arrival in left forearm with 0.9% NaCl at KVO. 9:39:51 IV started by Jose Gutiérrez RN inleft antecubital with a 20 gauge IV catheter with 0.9% NaCl at KVO. 9:40:12 STOPCOCK 3-Way Large Bore ([id number]) opened to sterile field. 9:40:15 Immobilizer Large opened to sterile field. 9:40:16 IV CATHETER 20g opened to sterile field. 9:47:11 Vital chart was started 9:47:12 Baseline sample Acquired. 9:47:17 Rhythm: sinus bradycardia 9:47:18 Full Disclosure recording started 9:54:26 Is patient on blood thinner?Yes 9:54:27 PT ON PLAVIX 9:54:27 Patient diabetic? No. 9:54:30 Previous problem with sedation/anesthesia? No ? 9:54:31 Snore? Yes 9:54:32 Sleep apnea? No 9:54:34 Deviated septum? No 9:54:34 Opens mouth fully? Yes 9:54:35 Sticks out tongue? Yes 9:54:37 Airway obstruction? No ? 9:54:43 Dentures? Yes IN TIGHT 9:57:33 Ancef (1Gm/50ml NS) 1 g I.V.P.B was administered by Jose Gutiérrez RN; Per physician; 9:57:40 Ancef Irrigation (1gm/500ml NS) 1 g Topical was administered by Jose Gutiérrez RN; used for procedure; 9:59:32 Medtronic Advisa MRI PPM Dual Generator [id number] opened to sterile field. 10:00:04 Medtronic 4074-52 PPM Lead opened to sterile field. 10:00:18 Medtronic 5076-45 PPM Lead opened to sterile field. 10:05:36 MICROPUNCTURE 4FR Cook ([id number]) opened to sterile field. 10:05:37 MICROPUNCTURE 4FR Cook ([id number]) opened to sterile field. 10:09:45 --------ALL STOP TIME OUT------ 10:09:45 Final Timeout: patient, procedure, and site verified with staff and physician. All members of the team are in agreement. 10:09:50 Left chest site verified by team. 10:09:54 Physical assessment completed. ASA score P 2 - A patient with mild systemic disease as per Austin Valero MD. 10:09:57 Sedation plan: IV Moderate Sedation Medication:Versed, Fentanyl 10:10:10 Fentanyl 50 mcg I.V. was administered by Jose Gutiérrez RN; for sedation; 10:10:17 Versed 1 mg I.V. was administered by Jose Gutiérrez RN; for sedation; 10:12:14 Procedure started. 10:12:21 [employer] phlebotomy services representative RAYSA BULL present for procedure. 10:12:41 Grounding pad site Left thigh. 10:12:44 Grounding pad site free from injury. 10:13:26 Pre sharps counted by scrub and verified by RN: Sutures: 2; Sponges: 5; Stick needles: 2; Skin needles: 2; Blade: 1; Cautery: 1 10:15:09 Lidocaine 1% was administered to left subclavicular area by Austin Valero MD . 10:15:43 Incision made to left subclavicular area. 10:22:02 Generator pocket made/opened. 10:23:24 Versed 1 mg I.V. was administered by Jose Gutiérrez RN; for sedation; 10:23:27 Access obtained with 4Fr micropunture. 10:23:28 Access obtained with 4Fr micropunture. 10:24:22 Left subclavian vein accessed with 7Fr Peel Away Sheath. 10:24:27 Left subclavian vein accessed with 7Fr Peel Away Sheath. 10:27:19 Atrial lead inserted and advanced. 10:27:21 Ventricular lead inserted and advanced. 10:29:01 Ventricular lead positioned. 10:32:12 Ventricular lead tested. 10:32:23 Atrial lead positioned. 10:33:25 Atrial lead tested. 10:35:46 Peel-a-way sheath was split and removed. 10:35:47 Peel-a-way sheath was split and removed. 10:35:52 PPM Dual was attached to lead(s) and inserted into pocket. 10:35:57 PPM Dual was inserted subcutaneously to left chest. 10:35:59 Device pocket was irrigated with Ancef. 10:37:14 Atrial lead attachment was completed with 2-0 silk. 10:37:18 Ventricular lead attachment was completed with 2-0 silk. 10:38:06 Subcutaneous closure was completed with 2-0 vicryl. 10:38:15 Skin closure was completed with 35mm [place]. 10:40:03 Parameters-- Generator: Mode: DDDR. Lower Rate: 70bpm. Upper Rate: 110bpm. 10:40:33 Parameters--Atrial P/R Wave: 2.4mV. Current: .2mA; Threshold: 1V; Impedence: 674OHMS. 10:41:01 Parameters--Ventricular P/R Wave: 8.2mV. Current: .2mA; Threshold: .3V; Impedence: 1270OHMS. 10:42:05 Post sharps counted by scrub and verified by RN: Sutures: 2; Sponges: 5; Stick needles: 2; Skin needles: 2; Blade: 1; Cautery: 1 10:42:33 Lt Chest incision was dressed with gauze eyepad and tegaderm. 10:42:43 Procedure ended.(Physican Out) 10:42:58 Fluoroscopy time 03.30 minutes. 10:43:06 Fluoroscopy dose: 106 mGy 10:43:06 Flurop Dose total: 106 10:43:13 Contrast amount:Visipaque 270 10ml. 10:43:15 Sharps counted by scrub and verified by R.N. 10:43:35 Post-procedure physical assessment completed. ASA score P 2 - A patient with mild systemic disease as per Austin Valero MD. 10:43:39 Post procedure rhythm: paced 10:43:41 Estimated blood loss: 10 ml 10:43:45 Post procedure instruction explained to patient.Patient verbalizes understanding. 10:43:45 Patient needs reinforcement of post procedure teaching. 10:44:21 Procedure type changed to Cath procedure, Diagnostic procedure, PPM/ICD, PPM Dual Implant, Sedation Charges, Moderate Sedation up to 30 minutes 10:46:30 Procedure and supply charges have been captured, reviewed, submitted and are correct. 10:46:33 Procedure Complication : No complications 10:46:35 Vital chart was stopped 10:46:36 See physician's report for complete and final results. 10:46:39 Report given to PCU. 10:46:42 Patient transfered to PCU with Bed. 10:46:43 Procedure ended. 10:46:43 Full Disclosure recording stopped 10:46:46 End room use (Document Last) Device Usage Item Name Manufacture Quantity Catalog Hospital Part Current Minima l Lot# / Serial# Number Charge Number Stock Stock Code [facility] 1 [id number] 5 3-Way Large Bore ([id number]) Immobilizer [place] 1 [id number] [id number] 5 Large Health IV CATHETER B. Reyes 1 [id number] 5 20g Medtronic Medtronic 1 [id number] [id number] 5 EXP: Advisa MRI [id number] PPM Dual Generator [id number] Medtronic Medtronic 1 4074-52 [id number] 5 2019-05-25 4074-52 PPM [id number] Lead Medtronic Medtronic 1 5076-45 373996 [id number] 5 EXP 2019-09-22 5076-45 PPM [id number] Lead MICROPUNCTURE [facility] 2 [id number] [id number] 5 4FR [place] ([id number]) Signature Audit [place] Stage Time Signature Unsigned Intra-Procedure 02/15/2018 Sintia Koch 10:47:24 AM RT(R) Signatures Monitor : Sintia Koch Signature : RT Date : Time : [address] [address]
[~2018-02-14 02:06] MED LIST changes: -FLOMAX0.4 MG PO; -KEFLEX500 MG PO; -LEVOTHYROXINE112 MCG PO; -SYNTHROID112 MCG PO; -ZOCOR20 MG PO
[2018-02-14 02:25] LABS: BASOPHILS 0.7 % (0-2); HEMOGLOBIN 13.8 g/dL (13.5-17.5); IMMATURE GRANULOCYTES 0.2 % (0-5); LYMPHOCYTES 32.2 % (15-50); MCH 30.7 pg (26.0-34.0); MCHC 33.7 g/dL (31.0-37.0); MCV 91.1 fL (80.0-100.0); MEAN PLATELET VOLUME 9.7 fL (7.4-10.4); NEUTROPHILS 51.9 % (40-80); PLATELET COUNT 174 10x3/uL (130-400); RDW 12.2 % (11.5-14.5); WBC 4.4 10x3/uL (4.8-10.8)
[2018-02-14 02:35] LABS: APTT 25.5 SECONDS (22.8-39.4); INR 1.03 (0.85-1.17); PROTIME 13.1 SECONDS (11.6-15.0)
[2018-02-14 02:54] LABS: ALBUMIN 3.6 g/dL (3.4-5.0); ALKALINE PHOSPHATASE 44 U/L (46-116); ALT (SGPT) 27 U/L (10-68); BILIRUBIN - TOTAL 0.52 mg/dL (0.2-1.3); CALC OSMOLALITY 287 mosm/kg (275-300); CALCIUM 9.1 mg/dL (8.5-10.1); CARBON DIOXIDE 26.1 mmol/L (21.0-32.0); CHLORIDE - SERUM 104 mmol/L (98-107); CREATININE - SERUM 1.5 mg/dL (0.6-1.3); GLUCOSE 110 mg/dL (74-106); POTASSIUM - SERUM 3.7 mmol/L (3.5-5.1); PROTEIN - SERUM 6.8 g/dL (6.4-8.2); SODIUM 141 mmol/L (136-145); UREA NITROGEN 28 mg/dL (7-18); eGFR NON AFRICAN AMERICAN 48 mL/min (90-120)
[2018-02-14 02:55] LABS: CREATINE KINASE 166 UL (21-232); PRO BNP 483 pg/mL (0-450)
[2018-02-14 02:58] LABS: TROPONIN-I < 0.017 ng/mL (0.000-0.060)
[2018-02-14] MEDS ORDERED: FLOMAX0.4 MG PO (04:57)
[2018-02-14] MEDS ORDERED: LEVOTHYROXINE112 MCG PO (04:57)
[2018-02-14 05:02] VITALS: BP 132/71; BMI 28.7
[2018-02-14 07:54] VITALS: Ht 175.3 cm; Wt 85.0 kg
[2018-02-14 08:39] VITALS: BP 104/61
[2018-02-14 12:16] VITALS: BP 134/68
[2018-02-14 16:55] VITALS: BP 123/72
[2018-02-14 19:00] VITALS: BP 141/70
[2018-02-15 04:00] VITALS: BP 114/64
[2018-02-15 09:07] VITALS: BP 122/76
[2018-02-15 12:15] VITALS: BP 143/75
[2018-02-15 16:34] VITALS: BP 166/85
[2018-02-15 21:30] VITALS: BP 144/86
[2018-02-16 01:12] VITALS: BP 133/81
[2018-02-16 05:21] VITALS: BP 146/84
[2018-02-16 07:50] VITALS: BP 144/86
[2018-02-16] MEDS ORDERED: ZOCOR20 MG PO (09:08)
[2018-02-16] MEDS ORDERED: ZEMPLAR1 MCG PO (09:08)
[2018-02-16] MEDS ORDERED: NORVASC5 MG PO (09:08)
[2018-02-16] MEDS ORDERED: ZETIA10 MG PO (09:08)
[2018-02-16] MEDS ORDERED: ASPIRIN EC81 M1 PO (09:08)
[2018-02-16] MEDS ORDERED: SYNTHROID112 MCG PO (09:08)
[2018-02-16] MEDS ORDERED: FLOMAX0.4 MG PO (09:08)
[2018-02-16] MEDS ORDERED: PLAVIX75 MG PO (09:08)
[2018-02-16] MEDS ORDERED: KEFLEX500 MG PO (09:08)
== END 2018-02-16 11:54 | disposition home or self-care (01) | DRG 244 ==
LOC: D.ER 02:06 → D.M2 03:58 → D.EDHOLD 03:58 → D.M2 04:18
PROVIDERS: Family Medicine; Internal Medicine Cardiovascular Disease
PROC: 02H63JZ Insertion of Pacemaker Lead into Right Atrium, Percutaneous Approach (ICD-10-PCS; 2018-02-15)
PROC: 02HK3JZ Insertion of Pacemaker Lead into Right Ventricle, Percutaneous Approach (ICD-10-PCS; 2018-02-15)
PROC: 0JH606Z Insertion of Pacemaker, Dual Chamber into Chest Subcutaneous Tissue and Fascia, Open Approach (ICD-10-PCS; principal; 2018-02-15 10:00)
DX: I49.5 Sick sinus syndrome (principal); I10 Essential (primary) hypertension; Z87.891 Personal history of nicotine dependence

== ENCOUNTER → 2019-03-23 09:46 | Outpatient (CLI) | payer MEDICARE, OTHER ==
[2018-02-14 07:54] VITALS: BMI 28.7
[~2019-03-23 09:46] MED LIST changes: +FLOMAX0.4 MG PO; +KEFLEX500 MG PO; +LEVOTHYROXINE112 MCG PO; +SYNTHROID112 MCG PO; +ZOCOR20 MG PO
== END | disposition home or self-care (01) ==
LOC: D.CT 09:46
PROVIDERS: ATTEND Family Medicine
DX: G31.84 Mild cognitive impairment of uncertain or unknown etiology (principal)

== ENCOUNTER 2019-04-14 03:09 | Inpatient (IN) | payer MEDICARE, OTHER ==
[~2019-04-14] VITALS: Ht 175.3 cm; Wt 83.9 kg
[2019-04-14] VITALS (7 sets, daily range): BP systolic 110–121; BP diastolic 41–78; Ht 175.3 cm; Wt 83.9 kg
[2019-04-14] MEDS ORDERED: METOPROLOL TART50 MG PO (03:13)
[2019-04-14 03:46] LABS: BASOPHILS 0.4 % (0-2); EOSINOPHILS 7.3 % (0-7); HEMATOCRIT 39.7 % (42.0-54.0); HEMOGLOBIN 13.5 g/dL (13.5-17.5); IMMATURE GRANULOCYTES 0.4 % (0-5); LYMPHOCYTES 16.7 % (15-50); MCH 30.3 pg (26.0-34.0); MCV 89.2 fL (80.0-100.0); MEAN PLATELET VOLUME 9.9 fL (7.4-10.4); MONOCYTES 7.9 % (2-11); NEUTROPHILS 67.3 % (40-80); PLATELET COUNT 147 10x3/uL (130-400); RBC 4.45 10x6/uL (4.20-6.10); RDW 12.8 % (11.5-14.5); WBC 4.8 10x3/uL (4.8-10.8)
--- NOTE | 2019-04-14 03:50 | NUR ---
PT TO CT.
[2019-04-14 04:02] LABS: ALBUMIN 3.4 g/dL (3.4-5.0); ALKALINE PHOSPHATASE 36 U/L (46-116); ALT (SGPT) 26 U/L (10-68); BILIRUBIN - TOTAL 0.44 mg/dL (0.2-1.3); CALC OSMOLALITY 284 mosm/kg (275-300); CALCIUM 9.1 mg/dL (8.5-10.1); CARBON DIOXIDE 25.6 mmol/L (21.0-32.0); CHLORIDE - SERUM 104 mmol/L (98-107); CREATININE - SERUM 1.4 mg/dL (0.6-1.3); GLUCOSE 112 mg/dL (74-106); POTASSIUM - SERUM 3.9 mmol/L (3.5-5.1); PROTEIN - SERUM 6.2 g/dL (6.4-8.2); SODIUM 139 mmol/L (136-145); UREA NITROGEN 28 mg/dL (7-18); eGFR NON AFRICAN AMERICAN 51 mL/min (90-120)
[2019-04-14 04:11] LABS: APTT 27.5 SECONDS (22.8-39.4); INR 1.09 (0.85-1.17); PROTIME 13.6 SECONDS (11.6-15.0)
[2019-04-14 04:14] LABS: CKMB 3.7 U/L (0.0-3.6); CREATINE KINASE 167 UL (21-232); PHOSPHOROUS 3.1 mg/dL (2.5-4.9)
--- NOTE | 2019-04-14 05:20 | NUR ---
ARIVED VIA STRETCHER TO BED BED LOW AND CALL LIGHT IS IN REACH SR X3 YELLOW GOWN PROVIDED,,,ALERT AND OX4 LCTA SKIN WARM AND DRY
--- NOTE | 2019-04-14 07:30 | NUR ---
RESUMING PT CARE, PT LAYING IN BED WITH EYES CLOSED, RESPIRATIONS EVEN AND UNLABORED. CALL LIGHT IN REACH. WILL CONTINUE TO MONITOR AND FOLLOW PLAN OF CARE.
--- NOTE | 2019-04-14 12:23 | NUR ---
I have reviewed this patient and I concur with the Shift Assessment completed by the Licensed Practical Nurse today this shift.
--- NOTE | 2019-04-14 20:01 | NUR ---
evening rounds completed. report received. pt sitting up in bed with eyes open, rr even and unlabored. bed in low position. no s/s of distress noted. introduced self to pt. pt denies further needs at this time. provided pt with water. call light in reach. will ctm/
[2019-04-15 00:30] VITALS: BP 105/61
--- NOTE | 2019-04-15 03:23 | NUR ---
I have reviewed this patient and I concur with the Shift Assessment completed by the Licensed Practical Nurse today this shift.
--- NOTE | 2019-04-15 04:11 | NUR ---
PT SITTING UP IN BED WITH EYES OPEN, RR EVEN AND UNLABORED. BED IN LOW POSITION. NO S/S OF DISTRESS NOTED. LEFT AC PIV INFUSING NORMAL SALINE ORDERED. CALL LIGHT IN REACH. 61 NORMAL SINUS ON TELEMETRY. WILL CTM.
[2019-04-15 04:30] VITALS: BP 134/81
[2019-04-15 06:03] LABS: ANION GAP 10.6 mmol/L (8-16); BILIRUBIN - TOTAL 0.69 mg/dL (0.2-1.3); CALCIUM 8.8 mg/dL (8.5-10.1); CARBON DIOXIDE 25.3 mmol/L (21.0-32.0); CREATININE - SERUM 1.4 mg/dL (0.6-1.3); POTASSIUM - SERUM 3.9 mmol/L (3.5-5.1); PROTEIN - SERUM 5.6 g/dL (6.4-8.2)
--- NOTE | 2019-04-15 07:00 | NUR ---
RECIEVED REPORT. ASSUMED CARE OF PATIENT. PATIENT RESTING IN BED WITH EYES OPEN. ARM KENDAL AND IV ALARMING FOR OCCULSION. IV PATENT NOW. PATIENT DENIES PAIN. RESP EVEN AND UNLABORD. NO DISTRESS.
--- NOTE | 2019-04-15 09:25 | NUR ---
18 GAUGE IV REMOVED FROM LEFT AC AREA HAS INFILTRATED AND IV SITE IS LEAKING. CATHETER TIP INTACT. 2X2 GAUZE APPLIED AND SECURED WITH TAPE. NO BLEEDING FROM SITE. 20 GAUGE IV PLACED TO RIGHT FOREARM X 1 STICK. GOOD BLOOD RETURN, EASY FLUSH. TAPED, DATED, AND SECURED. TOLERATED IV PLACEMENT WELL. IV FLUIDS INFUSING ORDERED AT THIS TIME. PATIENT AT BEDSIDE. NO DISTRESS. CALL LIGHT WITHIN REACH.
[2019-04-15 09:33] VITALS: BP 124/63
--- NOTE | 2019-04-15 11:36 | NUR ---
ORTHOSTATICS COMPLETE AND PATIENT AMBULATED 250 FT AROUND NURSING STATION WHILE STILL HERE. D/C ORDERS WILL BE ENTERED. ORTHOSTATIC BP'S: LYE 153/83, PULSE 60 SIT 146/79, PULSE 63 STAND 156/85, PULSE 67.
[2019-04-15] MEDS ORDERED: SYNTHROID150 MCG PO (11:41)
--- NOTE | 2019-04-15 12:45 | NUR ---
20 GAUGE IV REMOVED FROM RIGHT FOREARM. CATHETER TIP INTACT. NO BLEEDING FROM SITE. 2X2 GAUZE APPLIED AND SECURED WITH BANDAID. TELEMETRY REMOVED AND RETURNED TO MANAGER PROGRAMMING AT THIS TIME.
--- NOTE | 2019-04-15 12:55 | NUR ---
DISCHARGE INSTRUCTIONS PROVIDED TO PATIENT AND HIS . PATIENT AND BOTH VERBALIZE UNDERSTANDING OF ALL INSTRUCTIONS AND WILL CALL OFFICE ON WEDNESDAY TO SCHEDULE A ONE WEEK FOLLOW UP APPOINTMENT. PATIENT VERBALIZED UNDERSTANDING OF NO DRIVING UNTIL CLEARED BY .
--- NOTE | 2019-04-15 13:05 | NUR ---
PATIENT LEFT UNIT VIS WHEELCHAIR WITH ALL PERSONAL BELONGINGS. PATIENT DISCHARGED TO HOME WITH HIS . NO DISTRESS UPON LEAVING UNIT.
--- NOTE | 2019-04-17 09:01 | MORECARE ---
CASE MANAGEMENT DISCHARGE SUMMARY PATIENT: NEWTON GARZA UNIT: [id number] ADM DATE: 04/14/19 AGE: 83 : 36 SEX: M ROOM/BED: D.2108 AUTHOR: TEJAS VASQUEZ PHYSICIAN: REFERRING PHYSICIAN: MARY VO MD DATE OF SERVICE: 04/17/19 Discharge Plan Patient Name: NEWTON GARZA Facility: [facility]:[place] : 1935 Planned Disposition: Home Anticipated Discharge Date: 04/15/19 Discharge Date: 04/15/2019 Expected LOS: 1 Initial Reviewer: [email or web address] Initial Review Date: 04/17/2019 Generated: 04/17/19 10:01 am Patient Name: NEWTON GARZA Page [phone] at 0901 All edits/amendments must be made on the electronic document DICTATION DATE: 04/17/19900 MANAGER ADVERTISING: JESUS 04/17/19900 RPT#: [id number] DC DATE:04/15/19 STATUS: DIS IN [facility] [address] [place] [address] END OF REPORT
== END 2019-04-15 13:10 | disposition home or self-care (01) | DRG 312 ==
LOC: D.ER 03:09 → D.M2 04:17
PROVIDERS: Emergency Medicine; ADMIT Family Medicine; ATTEND Family Medicine
DX: I95.1 Orthostatic hypotension (principal); R55 Syncope and collapse; E86.0 Dehydration; I10 Essential (primary) hypertension; Z95.0 Presence of cardiac pacemaker; T46.5X5A Adverse effect of other antihypertensive drugs, initial encounter

== ENCOUNTER → 2019-05-17 08:21 | Outpatient (CLI) | payer MEDICARE, OTHER ==
[2019-04-14 13:40] VITALS: BMI 27.3
[~2019-05-17 08:21] MED LIST changes: +METOPROLOL TART50 MG PO; +SYNTHROID150 MCG PO
== END | disposition home or self-care (01) ==
LOC: D.HCCARDIO 08:21
PROVIDERS: ATTEND Internal Medicine Cardiovascular Disease
DX: I25.10 Atherosclerotic heart disease of native coronary artery without angina pectoris (principal)

== ENCOUNTER 2019-05-31 10:07 | Outpatient (CLI) | payer MEDICARE, OTHER ==
[~2019-05-31] VITALS: Ht 177.8 cm; Wt 82.3 kg
--- NOTE | ~2019-05-31 | HEMODYNAMI ---
PATIENT:NEWTON GARZA MEDICAL RECORD: [id number] : 37 LOCATION:[facility] ADMISSION DATE: 05/31/19 Generatedon:05/31/201914:24 Patient name: NEWTON GARZA Patient #: [id number] SSN : : 1935 Date of study: 05/31/2019 Page: Of Hemodynamic Procedure Report Patient Data Patient Demographics Procedure consent was obtained First Name: NEWTON Gender: Male Last Name: GREG : 1935 Patient #: [id number] Age: 84 year(s) Race: Unknown Additional ID: [id number] Contact details [address]: [address] [place] [address] State: [place] City: [place] Zip code: [address] Past Medical History Allergies: No known allergies Admission Admission Data Admission Date: 05/31/2019 Admission Time: 10:07 Lab Results Lab Result Date: 05/31/2019 Lab Result Time: 0:00 Biochemistry Name Units Result Min Max BUN mg/dl 28 --(----)-* 7 18 Creatinine mg/dl 1.5 --(----)-* 0.6 1.3 eGFR ml/min 47 *-(----)-- 90 120 NONAFRICAN CBC Name Units Result Min Max Hematocrit % 38.8 *-(----)-- 42 54 Hemoglobin g/dl 13.4 -*(----)-- 13.5 17.5 Procedure Procedure Types Cath Procedure Diagnostic Procedure LHC LH w/Coronaries FFR/IVUS Intra-Coronary IVUS Initial Sedation Charges Moderate Sedation up to 30 minutes PCI Procedure Coronary Stent Coronary Stent Initial Procedure Description Procedure Date Procedure Date: 05/31/2019 Procedure Start Time: 13:40 Procedure End Time: 14:21 Procedure Staff Name Function Soren Voss MD Performing Physician Sintia Koch RT Monitor Robert Steiner RT Scrub Dianna Brizuela RT Denisse Rodrigues RN Nurse Procedure Data Cath Procedure Fluoroscopy Diagnostic fluoroscopy Total fluoroscopy Time: time: 10.1 min 10.1 min Diagnostic fluoroscopy Total fluoroscopy dose: 984 dose: 984 mGy mGy Contrast Material Contrast Material Type Amount (ml) Isovue 300 98 Entry Location Entry Primary Successful Side Size Upsize Upsize Entry Closure Succes sful Closure Location (Fr) 1 (Fr) 2 (Fr) Remarks Device Remarks Radial Right 6 Fr artery Short Femoral Right 5 Fr 6 Fr Exoseal artery Short Estimated blood loss: 10 ml Diagnostic catheters Device Type Used For End Catheter Placement DIAGNOSTIC Kent 110cm 5 Procedure Fr catheter (660562) DIAGNOSTIC AR1 MOD 5Fr Procedure catheter ([id number]) DIAGNOSTIC Juanjose 110cm Procedure 5Fr catheter (606567) DIAGNOSTIC AR1 MOD 5Fr Procedure catheter ([id number]) Procedure Complications No complications Procedure Medications Medication Administration Route Dosage Oxygen etCO2 Nasal cannula 2 l/min Lidocaine 2% added to field 20 Heparin Flush Bag added to field 2 bags (1000units/500ml NS) 0.9% NaCl I.V. 100 ml/hr Radial Cocktail I.A. 1 syringe (Verapamil 2mg/Nitro 400mcg/Heparin 1500units) Versed I.V. 2 mg Fentanyl I.V. 50 mcg Versed I.V. 0.5 mg Fentanyl I.V. 50 mcg Versed I.V. 0.5 mg Heparin Bolus I.V. 8000 units Plavix P.O. 75 mg Hemodynamics Rest HGB: 13.4 (g/dl) Heart Rate: 66 (bpm) Pressure Samples Time Site Value (mmHg) Purpose Heart Use Rate(bpm) 13:46 LV 75/-3,2 Snapshot 60 Gradients Valve Time Site Site Mean SEP/DFP Peak To Heart Use 1 2 (mmHg) (sec/min) Peak Rate (mmHg) (bpm) Aortic 13:46 LV AO 60 Snapshots Pre Cath Intra NCS Post Cath Vital Signs Time Heart Resp SPO2 etCO2 NIBP (mmHg) Rhythm Pain Sedation Rate (ipm) (%) (mmHg) Status Level (bpm) 13:22:36 64 14 97 0 163/90(145) NSR 0 (11) 10(A) , No pain 13:27:02 62 19 94 26.2 140/86(122) NSR 0 (11) 10(A) , No pain 13:31:20 59 12 94 9 127/69(105) NSR 0 (11) 10(A) , No pain 13:35:32 59 24 92 21 120/74(91) NSR 0 (11) 10(A) , No pain 13:39:48 66 14 94 9.7 122/69(88) NSR 0 (11) 10(A) , No pain 13:44:09 60 19 94 12.7 113/56(83) NSR 0 (11) 9(A) , No pain 13:48:23 59 12 94 23.2 85/45(63) NSR 0 (11) 9(A) , No pain 13:52:28 60 10 93 9.7 100/55(72) NSR 0 (11) 9(A) , No pain 13:56:36 60 12 94 10.5 105/66(83) NSR 0 (11) 9(A) , No pain 14:00:44 59 12 94 28.5 113/73(86) NSR 0 (11) 9(A) , No pain 14:04:56 60 11 95 12 118/71(88) NSR 0 (11) 9(A) , No pain 14:09:10 62 12 95 9.7 114/74(93) NSR 0 (11) 9(A) , No pain 14:13:20 64 11 96 20.2 117/77(91) NSR 0 (11) 10(A) , No pain 14:17:29 62 11 97 20.2 119/82(100) NSR 0 (11) 10(A) , No pain Medications Time Medication Route Dose Verified Delivered Reason Not es Effectiveness by by 13:26:30 Oxygen etCO2 2 l/min Soren Buffie used for Nasal Bipin Rodrigues RN procedure cannula 13:26:49 Lidocaine 2% added 20ml Soren Soren for local to vial Bipin Voss MD anesthetic field 13:26:56 Heparin Flush added 2 bags Soren Soren used for Bag to Bipin Voss MD procedure (1000units/500ml field NS) 13:27:06 0.9% NaCl I.V. 100 Soren Buffie Per physician ml/hr Bipin Rodrigues RN 13:27:16 Radial Cocktail I.A. 1 Soren Soren for (Verapamil syringe Bipin Voss MD vasodilation 2mg/Nitro 400mcg/Heparin 1500units) 13:37:50 Versed I.V. 2 mg Soren Buffie for sedation Bipin Rodrigues RN 13:37:57 Fentanyl I.V. 50 mcg Soren Buffie for sedation Bipin Rodrigues RN 13:42:35 Versed I.V. 0.5 mg Soren Buffie for sedation Bipin Rodrigues RN 13:42:39 Fentanyl I.V. 50 mcg Soren Buffie for sedation Bipin Rodrigues RN 14:03:51 Versed I.V. 0.5 mg Soren Buffie for sedation Bipin Rodrigues RN 14:05:23 Heparin Bolus I.V. 8000 Soren Buffie for trudi ified units Bipin Rodrigues RN anticoagulation with dr voss 14:19:49 Plavix P.O. 75 mg Soren Buffie for Bipin Rodrigues RN antiplatelet therapy Procedure Log Time Note 13:05:55 Ace Rodrigues RN sent for patient. Start room use. 13:08:38 Signed procedure consent form obtained from patient. 13:08:40 Diagnostic Cath status Elective 13:09:10 Time tracking: Regular hours (M-F 7:00 - 5:00) 13:09:13 Plan of Care:Hemodynamics will remain stable., Cardiac rhythm will remain stable., Comfort level will be maintained., Respiratory function will remain adequate., Patient/ family verbilizes understanding of procedure., Procedure tolerated without complication., Recovers from procedure without complications.. 13:12:09 Lab Result : BUN 28 mg/dl 13:12:09 Lab Result : Creatinine 1.5 mg/dl 13:12:09 Lab Result : eGFR NONAFRICAN 47 ml/min 13:12:09 Lab Result : Hemoglobin 13.4 g/dl 13:12:09 Lab Result : Hematocrit 38.8 % 13:16:16 Patient received from Pre/Post Procedure Room to CCL 1 Alert and oriented. Tansferred to table in Supine position. 13:16:17 Warm blankets applied, and rachelle hugger turned on for patient comfort. 13:16:18 Correct patient and procedure confirmed by team. 13:16:18 ECG and BP/O2 sat monitors applied to patient. 13:21:25 Vital chart was started 13:21:27 Baseline sample Acquired. 13:21:33 Rhythm: sinus rhythm 13:21:37 Full Disclosure recording started 13:21:51 H&P Date Dictated: 05/31/2019 Within 30 days and on chart., H&P Addendum completed by physician on day of procedure. (MUST COMPLETE FOR ALL OUTPATIENTS). 13:21:52 Pre-procedure instructions explained to patient. 13:21:52 Pre-op teaching completed and patient verbalized understanding. 13:21:55 Family in patients room. 13:21:56 Patient NPO since Midnight. 13:21:58 Is the patient allergic to Iodine/contrast media? No. 13:21:59 Is patient on blood thinner?Yes 13:22:02 ACC The patient was administered the following blood thiners within the last 24 hours: ACCPlavix 13:22:05 Patient diabetic? No. 13:22:08 Previous problem with sedation/anesthesia? No ? 13:22:09 Snore? Yes 13:22:10 Sleep apnea? No 13:22:11 Deviated septum? No 13:22:12 Opens mouth fully? Yes 13:22:13 Sticks out tongue? Yes 13:22:15 Airway obstruction? No ? 13:22:19 Dentures? Yes IN 13:22:48 Pre procedure: right dorsailis pedis pulse 1+ Palpable, but thready & weak; easily obliterated 13:23:16 Modified Cameron's test Ulnar < 7 seconds 13:23:17 Patient pain scale 0/10 ?. 13:23:25 IV patent on arrival in left forearm with 0.9% NaCl at O. 13:23:27 Lab results completed and on chart. 13:23:31 Right Radial & Right Groin area was prepped with chlora-prep and draped in sterile fashion 13:23:32 Alarms reviewed by R. N. 13:23:33 Sharps counted by scrub and verified by R.N. 13:23:42 Use device set Radial Dx or PCI 13:24:06 ACIST Syringe (90395) opened to sterile field. 13:24:06 Medline Cath Pack ([id number]) opened to sterile field. 13:24:10 Bag Decanter (2002S) opened to sterile field. 13:24:10 ACIST Hand Control (53947) opened to sterile field. 13:24:11 ACIST Manifold (41599) opened to sterile field. 13:24:11 Tegaderm 4 x 4 (1626W) opened to sterile field. 13:24:14 MBrace Wrist Support (208271600) opened to sterile field. 13:24:17 EMERALD Guide Wire (681-155) opened to sterile field. 13:24:18 NEEDLE Cook 21G 4cm Radial (H98363) opened to sterile field. 13:24:19 SHEATH 6FR RAIN (3753204) opened to sterile field. 13:26:30 Oxygen 2 l/min etCO2 Nasal cannula was administered by Ace Rodrigues RN; used for procedure; 13:26:49 Lidocaine 2% 20ml vial added to field was administered by Soren Voss MD; for local anesthetic; 13:26:56 Heparin Flush Bag (1000units/500ml NS) 2 bags added to field was administered by Soren Voss MD; used for procedure; 13:27:06 0.9% NaCl 100 ml/hr I.V. was administered by Ace Rodrigues RN; Per physician; 13:27:16 Radial Cocktail (Verapamil 2mg/Nitro 400mcg/Heparin 1500units) 1 syringe I.A. was administered by Soren Voss MD; for vasodilation; 13:36:44 --------ALL STOP TIME OUT------ 13:36:44 Final Timeout: patient, procedure, and site verified with staff and physician. All members of the team are in agreement. 13:36:46 Right Radial & Right Groin site verified by team. 13:36:49 Fire Safety Assessment: A--An alcohol-based skin anteseptic being used preoperatively., C--Open oxygen or nitrous oxide is being used., D--An ESU, laser, or fiber-optic light is being used. 13:36:52 Physical assessment completed. ASA score P 2 - A patient with mild systemic disease as per Soren Voss MD. 13:36:57 3a) 45-59 Moderately reduced kidney function. 13:37:01 Maximum allowable contrast does (3.7 X eGFR X 0.75)130 ml. 13:37:05 Sedation plan: IV Moderate Sedation Medication:Versed, Fentanyl 13:37:21 Zero performed for pressure channel P1 13:37:50 Versed 2 mg I.V. was administered by Ace Rodrigues RN; for sedation; 13:37:57 Fentanyl 50 mcg I.V. was administered by Ace Rodrigues RN; for sedation; 13:40:06 Procedure started. 13:40:37 Local anesthetic to right radial artery with Lidocaine 2% by Soren Voss MD.INITIAL ACCESS ONLY 13:41:48 A 6 Fr Short sheath was inserted into the Right Radial artery 13:42:35 Versed 0.5 mg I.V. was administered by Ace Rodrigues RN; for sedation; 13:42:39 Fentanyl 50 mcg I.V. was administered by Ace Rodrigues RN; for sedation; 13:43:37 A DIAGNOSTIC Kent 110cm 5 Fr catheter (667363) was advanced over the wire and used for Procedure. 13:46:05 LV gram done using LOCKE 13:46:07 Injector settings: Ml/sec: 5, Volume: 15, 13:46:24 LV hemodynamics recorded. 13:46:38 EF : 60 % 13:48:58 LCA angiography performed. 13:49:50 Catheter exchanged over wire. 13:50:02 UNABLE TO ENGAGE RCA 13:51:23 A DIAGNOSTIC AR1 MOD 5Fr catheter (842141A) was advanced over the wire and used for Procedure. 13:53:48 Catheter exchanged over wire. 13:53:56 UNABLE TO ENGAGE RCA 13:54:34 Zero performed for pressure channel P1 13:54:40 A DIAGNOSTIC Juanjose 110cm 5Fr catheter (456192) was advanced over the wire and used for Procedure. 13:57:23 Catheter removed. 13:57:35 UNABLE TO ENGAGE RCA. WILL PROCEED GROIN 13:57:44 SHEATH 5FR Wilmot (XKD736) opened to sterile field. 13:58:19 Local anesthetic to right femoral artery with Lidocaine 2% by Soren Voss MD.ADDITIONAL ACCESS 13:58:40 Zero performed for pressure channel P1 13:59:38 A 5 Fr sheath was inserted into the Right Femoral artery 14:00:38 A DIAGNOSTIC AR1 MOD 5Fr catheter (057914U) was advanced over the wire and used for Procedure. 14:01:24 RCA angiography performed. 14:01:29 Catheter exchanged over wire. 14:02:08 SHEATH 6FR Wilmot (XIN799) opened to sterile field. 14:02:16 TUBING High Pressure Extension Tubing (Bipin) (CX4303R) opened to sterile field. 14:02:16 INFLATOR Merit BasixCompak (SM2807) opened to sterile field. 14:02:22 WHISPER 300cm guide wire ([id number]) opened to sterile field. 14:02:27 [place] Eag[place] IVUS Catheter (44297S) opened to sterile field. 14:02:33 GUIDE 6FR XBLAD 3.5 catheter (47871415) opened to sterile field. 14:03:01 Zero performed for pressure channel P1 14:03:19 Sheath upsized to a 6 Fr Short. 14:03:51 Versed 0.5 mg I.V. was administered by Ace Rodrigues RN; for sedation; 14:04:24 6 Fr XBLAD 3.5 guide catheter was inserted over the wire 14:05:23 Heparin Bolus 8000 units I.V. was administered by Ace Rodrigues RN; for anticoagulation; verified with dr voss 14:06:19 WHISPER 300 wire advanced. 14:06:26 Wire advanced across lesion. 14:11:04 IVUS catheter advanced over wire. 14:11:06 IVUS pass to LAD lesion performed. 14:11:07 IVUS catheter removed over wire. 14:14:04 Place stent Inflation Number: 1 A KEVIN OTW 3.5 x 30 stent ([id number]) was prepped and advanced across the Mid LAD 86. The stent was deployed at 12 ANIBAL for 0:10 (min:sec) 0. 14:14:57 Stent catheter was removed intact over wire. 14:14:58 Wire removed. 14:14:58 Guide catheter removed. 14:15:23 EXOSEAL 6Fr (EX600) opened to sterile field. 14:15:26 TR BAND Standard ([id number]) opened to sterile field. 14:15:41 Sheath removed intact; hemostasis achieved with Exoseal to the Right Femoral artery. 14:16:43 Procedure ended.(Physican Out) 14:18:00 Fluoroscopy time 10.10 minutes. 14:18:06 Flurop Dose total: 984 14:18:06 Fluoroscopy dose: 984 mGy 14:18:12 Contrast amount:Isovue 300 98ml. 14:18:13 Sharps counted by scrub and verified by R.N. 14:18:16 Post-op/insertion site Right Femoral artery dressed using a 4 x 4 and Tegaderm. 14:19:03 TR band inflated with 12cc of air. 14:19:07 Post-procedure physical assessment completed. ASA score P 2 - A patient with mild systemic disease as per Soren Voss MD. 14:19:10 Post procedure rhythm: sinus bradycardia 14:19:13 Estimated blood loss: 10 ml 14:19:14 Post procedure instruction explained to patient.Patient verbalizes understanding. 14:19:14 Patient needs reinforcement of post procedure teaching. 14:19:49 Plavix 75 mg P.O. was administered by Ace Rodrigues RN; for antiplatelet therapy; 14:19:55 Procedure type changed to Cath procedure, Diagnostic procedure, LHC, LHC w/Coronaries, FFR/IVUS, Intra-Coronary IVUS Initial, Sedation Charges, Moderate Sedation up to 30 minutes, PCI procedure, Coronary Stent, Coronary Stent Initial 14:20:31 Procedure and supply charges have been captured, reviewed, submitted and are correct. 14:20:41 Procedure Complication : No complications 14:20:43 Vital chart was stopped 14:20:44 See physician's report for complete and final results. 14:20:47 Report given to Pre/Post Procedure Room. 14:20:50 Patient transfered to Pre/Post Procedure Room with Bed. 14:21:32 Procedure ended. 14:21:32 Full Disclosure recording stopped 14:21:36 End room use (Document Last) Intervention Summary Intervention Notes Time ActionType Lesion and Equipment Action# Pressure Duration Attributes Used 14:14:04 Place stent Mid LAD KEVIN OTW 3.5 1 12 00:10 x 30 stent ([id number]) Device Usage Item Name Manufacture Quantity Catalog Hospital Part Current Mini mal Lot# / Number Charge Number Stock Stock Serial# Code ACIST Syringe Acist 1 44814 970259 659290 861443 20 (50832) Medical Systems Inc Medline Cath Medline 1 [id number] 744077 78574 875984 5 Pack ([id number]) Bag Decanter Microtek 1 223460 98827 243914 5 () Medical Inc. ACIST Hand Acist 1 45787 586804 211383 486915 5 Control Medical (11591) Systems Inc ACIST Acist 1 72158 314999 463896 738386 5 Manifold Medical (51155) Systems Inc Tegaderm 4 x 3M 1 1626W 628006 917474 627810 5 4 (1626W) MBrace Wrist Advanced 1 140-0250-00 843521 50313 262675 5 Support Vascular (266985373) Dynamics EMERALD Guide Cardinal 1 502-455 527829 596366 235565 5 Wire Health (502-455) NEEDLE Cook [place] Medical 1 E28510 070052 753079 731919 5 21G 4cm Radial (C21909) SHEATH 6FR Cardinal 1 1226589 823997 8386274 510205 5 [facility] (9455603) DIAGNOSTIC Terumo 1 40-5013 241177 675886 133883 5 Kent 110cm 5 Fr catheter (578465) DIAGNOSTIC Cardinal 1 198402O 353296 068928 837514 15 AR1 MOD 5Fr Health catheter (327934X) DIAGNOSTIC Terumo 1 40-5023 531453 353897 107483 5 Juanjose 110cm 5Fr catheter (717143) SHEATH 5FR Terumo 1 HLD668 258057 684319 024633 5 Wilmot (WDR540) SHEATH 6FR Terumo 1 THS127 129937 014776 286255 40 [place] (GAE340) TUBING High Merit 1 ES3979X 552649 43615 320619 10 Pressure Medical Extension Tubing (Voss) (CU1302W) INFLATOR Merit 1 XO5279 167757 100909 360229 15 [facility] Medical BasixCompak (BN2343) WHISPER 300cm [place] 1 [id number] 294419 446413 917548 5 guide wire Vascular (4801931RG) [place] 1 06798S 572809 600763 943224 8 [place] Eagleye IVUS Catheter (18778Y) GUIDE 6FR Cardinal 1 69103777 990837 916612 035395 10 XBLAD 3.5 Health catheter (64906081) KEVIN OTW 3.5 Medtronic 1 [id number] 351038 3944261 798718 5 [id number] x 30 stent ([id number]) EXOSEAL 6Fr Cardinal 1 EX600 336099 192184 766289 10 (EX600) Health TR BAND Terumo 1 NHQ78-YYY 134177 944829 567321 40 Standard (KBC99IAM) Signature Audit [place] Stage Time Signature Unsigned Intra-Procedure 05/31/2019 Sintia Koch 2:24:54 PM RT(R) Signatures Performing Physician : Signature : Soren Voss MD Date : Time : Monitor : Sintia Koch Signature : RT Date : Time : Nurse : Ace Rodrigues RN Signature : Date : Time : [address] [place] [address]
[2019-05-31] MEDS ORDERED: TOPROL XL50 MG PO (10:51)
[2019-05-31 11:03] VITALS: BP 134/79; Ht 177.8 cm; Wt 82.3 kg
[2019-05-31 11:08] LABS: BASOPHILS 0.4 % (0-2); EOSINOPHILS 3.2 % (0-7); HEMATOCRIT 38.8 % (42.0-54.0); HEMOGLOBIN 13.4 g/dL (13.5-17.5); IMMATURE GRANULOCYTES 0.1 % (0-5); LYMPHOCYTES 12.3 % (15-50); MCHC 34.5 g/dL (31.0-37.0); MCV 89.8 fL (80.0-100.0); MEAN PLATELET VOLUME 10.1 fL (7.4-10.4); MONOCYTES 8.4 % (2-11); NEUTROPHILS 75.6 % (40-80); PLATELET COUNT 155 10x3/uL (130-400); RBC 4.32 10x6/uL (4.20-6.10); RDW 12.9 % (11.5-14.5); WBC 7.4 10x3/uL (4.8-10.8)
[2019-05-31 11:27] LABS: ANION GAP 14.1 mmol/L (8-16); CALCIUM 9.1 mg/dL (8.5-10.1); CARBON DIOXIDE 25.5 mmol/L (21.0-32.0); CREATININE - SERUM 1.5 mg/dL (0.6-1.3); POTASSIUM - SERUM 4.6 mmol/L (3.5-5.1)
--- NOTE | 2019-05-31 14:45 | NUR ---
PT RECEIVED VIA STRETCHER FROM CRITICAL CARE REGISTERED NURSE FOR RECOVERY. PT AWAKE BUT DROWSY. R GROIN W 6FR EXOCELE AND FEMSTOP WITH 155 PRESSURE. LEG PINK AND WARM, PEDAL PULSES PALPABLE BUT WEAK DUE TO FEMSTOP. R WRIST W TR BAND AND IMMOBILIZER IN PLACE. DRESSING CDI NO BLEEDING OR SWELLING NOTED. HR NSR RATE 61, BP 131/78, O2 SAT 96, PLACE ON 2L/NC. IV PATENT INFUSING VIA ORDERS. AT BEDSIDE, CALL LIGHT IN REACH. PT INSTRUCTIED TO KEEP HEAD ON PILLOW AND LEG STRAIGHT, HE VERBALIZED UNDERSTANDING.
--- NOTE | 2019-05-31 15:15 | NUR ---
2L NC, NO RESP DISTRESS. RIGHT WRIST TR BAND CDI, NO BLEEDING NOTED. RIGHT GROIN 6F EXOSEAL CDI WITH FEMSTOP IN PLACE FOR HEMATOMA. NO C/O PAIN OR NAUSEA. VSS. FAMILY AT BEDSIDE, CALL LIGHT WITHIN REACH.
--- NOTE | 2019-05-31 15:30 | NUR ---
RESTING QUIETLY WITH EYES CLOSED. RIGHT WRIST TR BAND AND RIGHT GROIN 6F EXOSEAL CDI, NO BLEEDING NOTED. VSS. WILL CONTINUE TO MONITOR.
--- NOTE | 2019-05-31 15:45 | NUR ---
FEMSTOP PRESSURE DECREASED BY 25 WITH NO BLEEDING NOTED. VSS. WILL CONTINUE TO MONITOR CLOSELY.
--- NOTE | 2019-05-31 16:05 | NUR ---
FEMSTOP PRESSURE DECREASED BY 25 WITH NO BLEEDING NOTED.
--- NOTE | 2019-05-31 16:25 | NUR ---
FEMSTOP PRESSURE DECREASED BY 30 WITH NO BLEEDING NOTED.
--- NOTE | 2019-05-31 16:48 | NUR ---
FEMSTOP DECREASED BY 40 WITH NO BLEEDING NOTED.
--- NOTE | 2019-05-31 17:03 | NUR ---
REMAINING AIR REMOVED FROM FEMSTOP WITH NO BLEEDING NOTED. FEMSTOP REMOVED FROM SITE. VSS. WILL CONTINUE TO MONITOR.
--- NOTE | 2019-05-31 17:20 | NUR ---
HOB ELEVATED 30 DEGREES. RIGHT GROIN 6F EXOSEAL CDI, NO BLEEDING OR HEMATOMA NOTED. SIPPING ON DRINK AND EATING SANDWICH WITH NO C/O NAUSEA. 4CC OF AIR REMOVED FROM TR BAND WITH BLEEDING NOTED. 5CC OF AIR PLACED BACK INTO TR BAND TO STOP BLEEDING. VSS. CALL LIGHT WITHIN REACH.
--- NOTE | 2019-05-31 17:50 | NUR ---
4CC OF AIR REMOVED FROM TR BAND WITH NO BLEEDING NOTED. LEFT PIV D/C'D WITH CATHETER INTACT, BAND AID TO SITE. UP TO BEDSIDE TO GET DRESSED. AMBULATED TO RESTROOM.
--- NOTE | 2019-05-31 18:00 | NUR ---
4CC OF AIR REMOVED FROM TR BAND WITH NO BLEEDING NOTED. DISCHARGE INSTRUCTIONS GIVEN TO PT AND , BOTH VERBALIZED UNDERSTANDING.
--- NOTE | 2019-05-31 18:12 | NUR ---
REMAINING AIR REMOVED FROM TR BAND WITH NO BLEEDING NOTED. DRESSING PLACED TO SITE.
--- NOTE | 2019-05-31 18:20 | NUR ---
TAKEN OUT VIA WHEELCHAIR BY CATH ASH COLLECTOR. LEFT FACILITY WITH FAMILY AND ALL PERSONAL BELONGINGS.
== END 2019-05-31 18:20 | disposition home or self-care (01) ==
LOC: D.CATH 10:07
PROVIDERS: ATTEND Internal Medicine Cardiovascular Disease
DX: I25.119 Atherosclerotic heart disease of native coronary artery with unspecified angina pectoris (principal); Z01.812 Encounter for preprocedural laboratory examination
CPT/HCPCS: 93458; C9600; 92978

== ENCOUNTER 2019-10-18 06:32 | Observation (INO) | payer MEDICARE, OTHER ==
[~2019-10-18] VITALS: Ht 177.8 cm; Wt 82.7 kg
[2019-10-18] VITALS (7 sets, daily range): BP systolic 118–167; BP diastolic 66–91; Ht 177.8 cm; Wt 82.7 kg
[~2019-10-18 06:32] MED LIST changes: +TOPROL XL50 MG PO
[2019-10-18 07:28] LABS: CALC OSMOLALITY 278 mosm/kg (275-300); CARBON DIOXIDE 24.4 mmol/L (21.0-32.0); CHLORIDE - SERUM 104 mmol/L (98-107); CREATININE - SERUM 1.5 mg/dL (0.6-1.3); GLUCOSE 109 mg/dL (74-106); POTASSIUM - SERUM 3.9 mmol/L (3.5-5.1); SODIUM 137 mmol/L (136-145); UREA NITROGEN 24 mg/dL (7-18); eGFR NON AFRICAN AMERICAN 47 mL/min (90-120)
[2019-10-18 07:37] LABS: BASOPHILS 0.6 % (0-2); EOSINOPHILS 0.3 % (0-7); HEMATOCRIT 41.1 % (42.0-54.0); HEMOGLOBIN 13.7 g/dL (13.5-17.5); IMMATURE GRANULOCYTES 0.3 % (0-5); LYMPHOCYTES 8.2 % (15-50); MCH 31.1 pg (26.0-34.0); MCHC 33.3 g/dL (31.0-37.0); MCV 93.4 fL (80.0-100.0); MEAN PLATELET VOLUME 10.6 fL (7.4-10.4); MONOCYTES 15.1 % (2-11); NEUTROPHILS 75.5 % (40-80); PLATELET COUNT 139 10x3/uL (130-400); RDW 13.1 % (11.5-14.5); WBC 3.3 10x3/uL (4.8-10.8)
[2019-10-18 07:46] LABS: ALBUMIN 3.6 g/dL (3.4-5.0); ALKALINE PHOSPHATASE 40 U/L (46-116); ALT (SGPT) 30 U/L (10-68); BILIRUBIN - TOTAL 0.41 mg/dL (0.2-1.3); CKMB 1.4 U/L (0.0-3.6); CREATINE KINASE 173 UL (21-232); MAGNESIUM - SERUM 1.9 mg/dL (1.8-2.4); PROTEIN - SERUM 6.8 g/dL (6.4-8.2); TROPONIN-I < 0.017 ng/mL (0.000-0.060)
[2019-10-18 07:47] LABS: APTT 28.3 SECONDS (22.8-39.4); INR 1.07 (0.85-1.17); PROTIME 13.4 SECONDS (11.6-15.0)
[2019-10-18 10:37] LABS: APPEARANCE CLEAR (CLEAR); COLOR YELLOW (YELLOW); SPECIFIC GRAVITY 1.015 (1.005-1.020)
[2019-10-18 10:38] LABS: BACTERIA FEW /hpf (NEGATIVE); BILIRUBIN NEGATIVE (NEGATIVE); EPITHELIAL CELLS RARE /hpf (0-5); GLUCOSE NEGATIVE (NEGATIVE); KETONE SMALL mg/dL (NEGATIVE); NITRITE NEGATIVE (NEGATIVE); PROTEIN TRACE mg/dL (NEGATIVE); RED CELLS - URINE OCC /hpf (0-5); UROBILINOGEN NORMAL (NORMAL); WHITE CELLS - URINE NSEEN /hpf (NEGATIVE)
--- NOTE | 2019-10-18 12:15 | NUR ---
pt recieved via strecher from er. denies needs or pain at this time. rr even and unlabored. Iv noted to left wrist @ 125/hr. @ bedside. Pt oriented to room. Bed in lowest position. Call light within reach.
[2019-10-18] MEDS ORDERED: ZOCOR40 MG PO (12:52)
[2019-10-18] MEDS ORDERED: SYNTHROID112 MCG PO (12:54)
[2019-10-18] MEDS ORDERED: NORVASC2.5 MG PO (12:55)
[2019-10-18] MEDS ORDERED: FLOMAX0.4 MG PO (12:57)
--- NOTE | 2019-10-18 16:45 | NUR ---
PT RESTING, RR EVEN AND UNLABORED. DENIES NEEDS OR PAIN AT THIS TIME
--- NOTE | 2019-10-18 18:42 | NUR ---
RECIEVED WARM BLANKET PER REQUEST. REPOSITIONED TO COMFORT. RR EVEN AND UNLABORED. DENIES FURTHER NEEDS OR PAIN AT THIS TIME. CALL LIGHT WITHIN REACH. WILL CONTINUE TO MONITOR.
[2019-10-19] VITALS: BP 140/75
[2019-10-19 04:00] VITALS: BP 141/81
[2019-10-19 06:15] LABS: ANION GAP 10.5 mmol/L (8-16); BILIRUBIN - TOTAL 0.38 mg/dL (0.2-1.3); CALCIUM 8.1 mg/dL (8.5-10.1); CARBON DIOXIDE 24.6 mmol/L (21.0-32.0); POTASSIUM - SERUM 4.1 mmol/L (3.5-5.1); PROTEIN - SERUM 5.6 g/dL (6.4-8.2)
[2019-10-19 06:16] LABS: CREATININE - SERUM 1.1 mg/dL (0.6-1.3)
[2019-10-19 06:29] LABS: HEMOGLOBIN 12.5 g/dL (13.5-17.5); LYMPHOCYTES 18.2 % (15-50); MCH 31.2 pg (26.0-34.0); MCHC 33.8 g/dL (31.0-37.0); MCV 92.3 fL (80.0-100.0); MEAN PLATELET VOLUME 9.9 fL (7.4-10.4); NEUTROPHILS 62.2 % (40-80); RBC 4.01 10x6/uL (4.20-6.10); WBC 2.5 10x3/uL (4.8-10.8)
[2019-10-19 06:32] LABS: PLATELET COUNT 103 10x3/uL (130-400)
--- NOTE | 2019-10-19 07:20 | NUR ---
ASSESSMENT DONE. DENIES NEEDS
--- NOTE | 2019-10-19 08:39 | NUR ---
UPON ADMIT, MICHAEL HAS NOT HAD A FLU SHOT. WHEN ASKED, HE STATES THAT HE WOULD LIKE ONE.
--- NOTE | 2019-10-19 09:37 | NUR ---
DC GIVEN TO PT
--- NOTE | 2019-10-19 09:37 | NUR ---
I have reviewed this patient and I concur with the Shift Assessment completed by the Licensed Practical Nurse today this shift.
[2019-10-19 09:49] VITALS: BP 143/80
--- NOTE | 2019-10-19 10:03 | NUR ---
DC HOME PER PERSONAL CAR
--- NOTE | 2019-10-20 09:23 | MORECARE ---
CASE MANAGEMENT DISCHARGE SUMMARY PATIENT: NEWTON GARZA UNIT: [id number] ADM DATE: 10/18/19 AGE: 84 : 36 SEX: M ROOM/BED: D.2103 AUTHOR: TEJAS VASQUEZ PHYSICIAN: REFERRING PHYSICIAN: MARY VO MD DATE OF SERVICE: 10/20/19 Discharge Plan Patient Name: NEWTON GARZA Facility: [facility]:[place] : 1935 Planned Disposition: Home Anticipated Discharge Date: 10/19/19 Discharge Date: 10/19/2019 Expected LOS: 1 Initial Reviewer: [email or web address] Initial Review Date: 10/20/2019 Generated: 10/20/19 10:23 am Coverage Notice Reviewer: [email or web address] Saadia Noguera Notice Issued Date-Time: 10/18/2019 11:15 Notice Type: Medicare Outpatient Observation Notice Notice Delivered To: Patient Relationship to Patient: Spouse Electrical Controls Designer Name: Paz Singh Delivery Method: HAND - Hand Delivered Aye Days: Prior Verbal Notification: Recipient Understood Notice: Yes Recipient Signature: Yes Med Rec Note Co-signed by Attending: Coverage Notice Comment: VILLAVICENCIO delivered to and signed by spouse, Paz Garza @1115. Original given to patient and also placed on chart. Patient Name: NEWTON GARZA Page [phone] at 0923 All edits/amendments must be made on the electronic document DICTATION DATE: 10/20/19922 MANAGER LVN: JESUS 10/20/19922 RPT#: [id number] DC DATE:10/19/19 STATUS: DIS IN [facility] [address] [facility] [address] END OF REPORT
== END 2019-10-19 10:03 | disposition home or self-care (01) ==
LOC: D.ER 06:32 → D.M2 11:07 → OBSVTIME 12:29 → D.M2 10-19 10:03
PROVIDERS: Family Medicine; ADMIT Family Medicine; ATTEND Family Medicine
DX: I95.1 Orthostatic hypotension (principal); R55 Syncope and collapse; R53.81 Other malaise; R53.83 Other fatigue; E86.0 Dehydration; Z95.0 Presence of cardiac pacemaker

== ENCOUNTER → 2019-12-06 18:11 | Outpatient (CLI) | payer MEDICARE, OTHER ==
[2019-10-18 19:05] VITALS: BMI 26.1
[~2019-12-06 18:11] MED LIST changes: +NORVASC2.5 MG PO
== END | disposition home or self-care (01) ==
LOC: D.LABREF 18:11
PROVIDERS: ATTEND Orthopaedic Surgery
DX: M25.561 Pain in right knee (principal)

== ENCOUNTER 2019-12-07 11:18 | Inpatient (IN) | payer MEDICARE, OTHER ==
[~2019-12-07] VITALS: Ht 172.7 cm; Wt 81.6 kg
[2020-01-10 11:52] LABS: BASOPHILS 0.8 % (0-2); HEMATOCRIT 42.5 % (42.0-54.0); IMMATURE GRANULOCYTES 0.4 % (0-5); LYMPHOCYTES 23.2 % (15-50); MCH 31.1 pg (26.0-34.0); MCHC 32.9 g/dL (31.0-37.0); MCV 94.4 fL (80.0-100.0); MONOCYTES 9.6 % (2-11); RDW 13.2 % (11.5-14.5); WBC 5.3 10x3/uL (4.8-10.8)
[2020-01-10 11:59] LABS: PLATELET COUNT 185 10x3/uL (130-400)
[2020-01-10 12:00] LABS: ANION GAP 9.6 mmol/L (8-16); CALCIUM 8.9 mg/dL (8.5-10.1); CARBON DIOXIDE 29.8 mmol/L (21.0-32.0); CREATININE - SERUM 1.4 mg/dL (0.6-1.3); POTASSIUM - SERUM 4.4 mmol/L (3.5-5.1)
[2020-01-10 12:09] LABS: APTT 26.5 SECONDS (22.8-39.4); INR 1.01 (0.85-1.17); PROTIME 13.3 SECONDS (11.6-15.0)
[2020-01-12 08:04] LABS: BILIRUBIN NEGATIVE (NEGATIVE); GLUCOSE NEGATIVE (NEGATIVE); KETONE NEGATIVE (NEGATIVE); NITRITE NEGATIVE (NEGATIVE); UROBILINOGEN NORMAL (NORMAL)
[2020-01-15] VITALS (10 sets, daily range): BP systolic 118–157; BP diastolic 61–92; BMI 25.9; BMI 27.4
--- NOTE | 2020-01-15 17:47 | MORECARE ---
CASE MANAGEMENT DISCHARGE SUMMARY PATIENT: NEWTON GARZA UNIT: [id number] ADM DATE: 01/15/20 AGE: 84 : 36 SEX: M ROOM/BED: D.1211 AUTHOR: PEDRO,DOC PHYSICIAN: REFERRING PHYSICIAN: ZEFERINO RIVERA MD DATE OF SERVICE: 01/15/20 Discharge Plan Patient Name: NEWTON GARZA Facility: [facility]:[place] : 1935 Planned Disposition: Home Anticipated Discharge Date: 01/17/20 Discharge Date: Expected LOS: 2 Initial Reviewer: [email or web address] Initial Review Date: 01/15/2020 Generated: 01/15/20 6:47 pm DCPIA - Discharge Planning Initial Assessment Updated by [email or web address]: Arlette Delong on 01/15/20 5:47 pm * Is the patient Alert and Oriented? Yes * PCP Dr. Vides * Pharmacy [facility] * Preadmission Environment Home with Family * ADLs Independent * Other Equipment His equipment has not been delivered - Nisha at Dr. Rivera's office notified. * List name and contact numbers for known caregivers / representatives who currently or will assist patient after discharge: Paz Garza - - [phone] * Verbal permission to speak to the caregivers and representatives has been obtained from the patient. Yes * Additional services required to return to the preadmission environment? Yes * Can the patient safely return to the preadmission environment? Yes * Has this patient been hospitalized within the prior 30 days at any hospital? No Coverage Notice Reviewer: [email or web address] Saadia Delong Notice Issued Date-Time: 01/15/2020 16:30 Notice Type: IM Admission Notice Notice Delivered To: Patient Relationship to Patient: Concrete Polisher Name: Delivery Method: - Aye Days: Prior Verbal Notification: Recipient Understood Notice: Yes Recipient Signature: Yes Med Rec Note Co-signed by Attending: Coverage Notice Comment: IMM delivered, explained, signed by the patient, and placed in his chart. Signed form also left with patient. Arlette Delong RN, [facility] Reviewer: [email or web address] Saadia Delong Notice Issued Date-Time: 01/15/2020 17:05 Notice Type: Patient Choice Letter Notice Delivered To: Patient Relationship to Patient: Concrete Polisher Name: Delivery Method: - Aye Days: Prior Verbal Notification: Recipient Understood Notice: Yes Recipient Signature: Yes Med Rec Note Co-signed by Attending: Coverage Notice Comment: SERENA SIGNED FOR RUKHSANA'S OP [address] [place]. Patient Name: NEWTON GARZA Page [phone] at 1747 All edits/amendments must be made on the electronic document DICTATION DATE: 01/15/201746 NUTRITION PROFESSOR: JESUS 01/15/201746 RPT#: [id number] DC DATE: STATUS: ADM IN [facility] [address] [place] [address] END OF REPORT
--- NOTE | 2020-01-15 17:57 | MORECARE ---
CASE MANAGEMENT DISCHARGE SUMMARY PATIENT: NEWTON GARZA UNIT: [id number] ADM DATE: 01/15/20 AGE: 84 : 36 SEX: M ROOM/BED: D.1211 AUTHOR: PEDRO,DOC PHYSICIAN: REFERRING PHYSICIAN: ZEFERINO RIVERA MD DATE OF SERVICE: 01/15/20 Discharge Plan Patient Name: NEWTON GARZA Facility: [facility]:[place] : 1935 Planned Disposition: Home Anticipated Discharge Date: 01/17/20 Discharge Date: Expected LOS: 2 Initial Reviewer: [email or web address] Initial Review Date: 01/15/2020 Generated: 01/15/20 6:56 pm Comments DCP- Discharge Planning Updated by [email or web address]: Arlette Delong on 01/15/20 4:[address] DC PLAN: Return home with and outpatient physical therapy. ANTICIPATED DC NEEDS: OP PT @ [facility] OP [address] CM met with patient to complete initial dc planning assessment. CM educated patient on the CM role and verbal consent given by patient to complete assessment. CM verified patient's address, phone number, and emergency contact phone numbers. Patient lives at home with his and was independent in his care prior to surgery. At discharge patient plans to return home with his and feels this is a safe discharge. He signed barrera form for [facility] Therapy center on [address] - . CM to call tomorrow to make his appointment. He reports his walker, cpm, and bsc have not be delivered to his home prior to surgery. CM called and notified Nisha at Dr. Dalal office and she stated she will call the [employer] to find out why it has not been delivered. Patient denied further known discharge needs at this time. Transportation provider at discharge will be his . CM will continue to follow and will assist as needed with dc plans/needs. Arlette Delong RN, [facility] DCPIA - Discharge Planning Initial Assessment Updated by [email or web address]: Arlette Delong on 01/15/20 5:47 pm * Is the patient Alert and Oriented? Yes * PCP Dr. Vides * Pharmacy [facility] * Preadmission Environment Home with Family * ADLs Independent * Other Equipment His equipment has not been delivered - Nisha at Dr. Rivera's office notified. * List name and contact numbers for known caregivers / representatives who currently or will assist patient after discharge: Paz Garza - - [phone] * Verbal permission to speak to the caregivers and representatives has been obtained from the patient. Yes * Additional services required to return to the preadmission environment? Yes * Can the patient safely return to the preadmission environment? Yes * Has this patient been hospitalized within the prior 30 days at any hospital? No Coverage Notice Reviewer: [id number] Saadia Delong Notice Issued Date-Time: 01/15/2020 16:30 Notice Type: IM Admission Notice Notice Delivered To: Patient Relationship to Patient: Punchboard Filling Machine Operator Name: Delivery Method: - Aye Days: Prior Verbal Notification: Recipient Understood Notice: Yes Recipient Signature: Yes Med Rec Note Co-signed by Attending: Coverage Notice Comment: IMM delivered, explained, signed by the patient, and placed in his chart. Signed form also left with patient. Arlette Delong RN, CCM Reviewer: [id number] Saadia Delong Notice Issued Date-Time: 01/15/2020 17:05 Notice Type: Patient Choice Letter Notice Delivered To: Patient Relationship to Patient: Punchboard Filling Machine Operator Name: Delivery Method: - Aye Days: Prior Verbal Notification: Recipient Understood Notice: Yes Recipient Signature: Yes Med Rec Note Co-signed by Attending: Coverage Notice Comment: BARRERA SIGNED FOR [facility] OP [address] [place]. Last DP export: 01/15/20 4:47 pm Patient Name: NEWTON GARZA Page [id number] at 1757 All edits/amendments must be made on the electronic document DICTATION DATE: 01/15/201755 WHEEL LACER AND TRUER: JESUS 01/15/201755 RPT#: [id number] DC DATE: STATUS: ADM IN [facility] [address] [place] [address] END OF REPORT
[2020-01-16 05:11] VITALS: BP 101/58
[2020-01-16 06:37] LABS: HEMATOCRIT 35.8 % (42.0-54.0); HEMOGLOBIN 11.7 g/dL (13.5-17.5); MCH 30.2 pg (26.0-34.0); MCHC 32.7 g/dL (31.0-37.0); MCV 92.5 fL (80.0-100.0); MEAN PLATELET VOLUME 10.1 fL (7.4-10.4); RBC 3.87 10x6/uL (4.20-6.10); WBC 7.2 10x3/uL (4.8-10.8)
[2020-01-16 07:22] VITALS: BP 99/56
--- NOTE | 2020-01-16 11:27 | MORECARE ---
CASE MANAGEMENT DISCHARGE SUMMARY PATIENT: NEWTON GARZA UNIT: [id number] ADM DATE: 01/15/20 AGE: 84 : 36 SEX: M ROOM/BED: D.1211 AUTHOR: PEDRO,DOC PHYSICIAN: REFERRING PHYSICIAN: ZEFERINO RIVERA MD DATE OF SERVICE: 01/16/20 Discharge Plan Patient Name: NEWTON GARZA Facility: [facility]:[place] : 1935 Planned Disposition: Home Anticipated Discharge Date: 01/17/20 Discharge Date: Expected LOS: 2 Initial Reviewer: [email or web address] Initial Review Date: 01/15/2020 Generated: 01/16/20 12:26 pm Comments DCP- Discharge Planning Updated by [email or web address]: Nidhi Noguera on 01/16/20 10:[address] CM contacted Cher with [facility] [address] for Op Physical Therapy appointment, spoke with Cher. Appointment Wednesday01/19/20 @1:00 pm. , Fx #[phone]. DCP- Discharge Planning Updated by [email or web address]: Arlette Delong on 01/15/20 4:[address] DC PLAN: Return home with and outpatient physical therapy. ANTICIPATED DC NEEDS: OP PT @ [facility] OP [address]. CM met with patient to complete initial dc planning assessment. CM educated patient on the CM role and verbal consent given by patient to complete assessment. CM verified patient's address, phone number, and emergency contact phone numbers. Patient lives at home with his and was independent in his care prior to surgery. At discharge patient plans to return home with his and feels this is a safe discharge. He signed barrera form for [facility] OP Therapy center on [address] . CM to call tomorrow to make his appointment. He reports his walker, cpm, and bsc have not be delivered to his home prior to surgery. CM called and notified Nisha at Dr. Dalal office and she stated she will call the [employer] to find out why it has not been delivered. Patient denied further known discharge needs at this time. Transportation provider at discharge will be his . CM will continue to follow and will assist as needed with dc plans/needs. Arlette Delong RN, CCM DCPIA - Discharge Planning Initial Assessment Updated by [email or web address]: Arlette Delong on 01/15/20 5:47 pm * Is the patient Alert and Oriented? Yes * PCP Dr. Vides * Pharmacy [facility] * Preadmission Environment Home with Family * ADLs Independent * Other Equipment His equipment has not been delivered - Nisha at Dr. Rivera's office notified. * List name and contact numbers for known caregivers / representatives who currently or will assist patient after discharge: Paz Garza - - [phone] * Verbal permission to speak to the caregivers and representatives has been obtained from the patient. Yes * Additional services required to return to the preadmission environment? Yes * Can the patient safely return to the preadmission environment? Yes * Has this patient been hospitalized within the prior 30 days at any hospital? No Coverage Notice Reviewer: [id number] Saadia Delong Notice Issued Date-Time: 01/15/2020 16:30 Notice Type: IM Admission Notice Notice Delivered To: Patient Relationship to Patient: Marketing And Outreach Coordinator Name: Delivery Method: - Aye Days: Prior Verbal Notification: Recipient Understood Notice: Yes Recipient Signature: Yes Med Rec Note Co-signed by Attending: Coverage Notice Comment: IMM delivered, explained, signed by the patient, and placed in his chart. Signed form also left with patient. Arlette Delong RN, CCM Reviewer: [email or web address] Saadia Delong Notice Issued Date-Time: 01/15/2020 17:05 Notice Type: Patient Choice Letter Notice Delivered To: Patient Relationship to Patient: Marketing And Outreach Coordinator Name: Delivery Method: - Aye Days: Prior Verbal Notification: Recipient Understood Notice: Yes Recipient Signature: Yes Med Rec Note Co-signed by Attending: Coverage Notice Comment: BARRERA SIGNED FOR [facility] OP [address] [facility]. Last DP export: 01/15/20 4:57 pm Patient Name: NEWTON GARZA Page [id number] at 1127 All edits/amendments must be made on the electronic document DICTATION DATE: 01/16/20 1126 WELDER METAL FAB: JESUS 01/16/20 1126 RPT#: [id number] DC DATE: STATUS: ADM IN [facility] [address] [facility] [place] [address] END OF REPORT
[2020-01-16 12:08] VITALS: BP 106/64
[2020-01-16 13:00] VITALS: Ht 172.7 cm; Wt 81.6 kg
[2020-01-16 16:13] VITALS: BP 124/69
[2020-01-16 19:23] VITALS: BP 138/71
[2020-01-16 23:12] VITALS: BP 126/69
[2020-01-17 03:28] VITALS: BP 113/55
[2020-01-17 09:02] LABS: HEMATOCRIT 38.4 % (42.0-54.0); HEMOGLOBIN 12.3 g/dL (13.5-17.5); MCH 30.4 pg (26.0-34.0); MEAN PLATELET VOLUME 10.2 fL (7.4-10.4); RBC 4.05 10x6/uL (4.20-6.10); RDW 13.4 % (11.5-14.5); WBC 6.7 10x3/uL (4.8-10.8)
[2020-01-17 09:17] VITALS: BP 127/68
[2020-01-17 09:24] LABS: MCV 94.8 fL (80.0-100.0)
[2020-01-17 11:30] VITALS: BP 117/63
--- NOTE | 2020-01-17 16:13 | MORECARE ---
CASE MANAGEMENT DISCHARGE SUMMARY PATIENT: MARISA GARZA UNIT: [id number] ADM DATE: 01/15/20 AGE: 84 : 36 SEX: M ROOM/BED: D.1211 AUTHOR: PEDRO,DOC PHYSICIAN: REFERRING PHYSICIAN: ZEFERINO RIVERA MD DATE OF SERVICE: 01/17/20 Discharge Plan Patient Name: MARISA GARZA Facility: [facility]:[place] : 1935 Planned Disposition: Home Anticipated Discharge Date: 01/17/20 Discharge Date: Expected LOS: 2 Initial Reviewer: [email or web address] Initial Review Date: 01/15/2020 Generated: 01/17/20 5:13 pm Comments DCP- Discharge Planning Updated by [email or web address]: Nidhi Noguera on 01/16/20 10:[address] CM contacted Cher with [facility] [address] for Op Physical Therapy appointment, spoke with Cher. Appointment Wednesday01/19/20 @1:00 pm. , Fx #[phone]. DCP- Discharge Planning Updated by [email or web address]: Arlette Delong on 01/15/20 4:[address] DC PLAN: Return home with and outpatient physical therapy. ANTICIPATED DC NEEDS: OP PT @ [facility] OP PT [address]. CM met with patient to complete initial dc planning assessment. CM educated patient on the CM role and verbal consent given by patient to complete assessment. CM verified patient's address, phone number, and emergency contact phone numbers. Patient lives at home with his and was independent in his care prior to surgery. At discharge patient plans to return home with his and feels this is a safe discharge. He signed barrera form for [facility] OP Therapy center on [address] . CM to call tomorrow to make his appointment. He reports his walker, cpm, and bsc have not be delivered to his home prior to surgery. CM called and notified Nisha at Dr. Dalal office and she stated she will call the [employer] company to find out why it has not been delivered. Patient denied further known discharge needs at this time. Transportation provider at discharge will be his . CM will continue to follow and will assist as needed with dc plans/needs. Arlette Delong RN, CCM DCPIA - Discharge Planning Initial Assessment Updated by [email or web address]: Arlette Delong on 01/15/20 5:47 pm * Is the patient Alert and Oriented? Yes * PCP Dr. Vides * Pharmacy [facility] * Preadmission Environment Home with Family * ADLs Independent * Other Equipment His equipment has not been delivered - Nisha at Dr. Rivera's office notified. * List name and contact numbers for known caregivers / representatives who currently or will assist patient after discharge: Paz Garza - - [phone] * Verbal permission to speak to the caregivers and representatives has been obtained from the patient. Yes * Additional services required to return to the preadmission environment? Yes * Can the patient safely return to the preadmission environment? Yes * Has this patient been hospitalized within the prior 30 days at any hospital? No Coverage Notice Reviewer: [id number] Saadia Delong Notice Issued Date-Time: 01/15/2020 16:30 Notice Type: IM Admission Notice Notice Delivered To: Patient Relationship to Patient: Splunk Consultant Name: Delivery Method: - Aye Days: Prior Verbal Notification: Recipient Understood Notice: Yes Recipient Signature: Yes Med Rec Note Co-signed by Attending: Coverage Notice Comment: IMM delivered, explained, signed by the patient, and placed in his chart. Signed form also left with patient. Arlette Delong RN, CCM Reviewer: [id number] Saadia Delong Notice Issued Date-Time: 01/15/2020 17:05 Notice Type: Patient Choice Letter Notice Delivered To: Patient Relationship to Patient: Splunk Consultant Name: Delivery Method: - Aye Days: Prior Verbal Notification: Recipient Understood Notice: Yes Recipient Signature: Yes Med Rec Note Co-signed by Attending: Coverage Notice Comment: BARRERA SIGNED FOR [facility] OP [address] [facility]. Reviewer: [id number] Saadia Noguera Notice Issued Date-Time: 01/17/2020 15:40 Notice Type: IM Discharge Notice Notice Delivered To: Patient Relationship to Patient: Self Splunk Consultant Name: Marisa Garza Delivery Method: HAND - Hand Delivered Aye Days: Prior Verbal Notification: Recipient Understood Notice: Yes Recipient Signature: Yes Med Rec Note Co-signed by Attending: Coverage Notice Comment: DC IMM delivered to and signed by the patient. Original givento the patient and one placed on the chart. Last DP export: 01/16/20 10:27 am Patient Name: MARISA GARZA Page [id number] at 1613 All edits/amendments must be made on the electronic document DICTATION DATE: 01/17/20 161 TOUCH UP EDGER: JESUS 01/17/20 1613 RPT#: [id number] DC DATE: STATUS: ADM IN [facility] [address] [place] [address] END OF REPORT
[2020-01-17 19:22] VITALS: BP 154/84
[2020-01-18 00:30] VITALS: BP 133/59
[2020-01-18 05:08] VITALS: BP 129/51
--- NOTE | 2020-01-18 07:24 | OP ---
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 PROCEDURE: Revision total knee arthroplasty poly only. SURGEON: Zeferino Rivera MD DAY CARE PROVIDER: Isaiah Marcum. INTRAOPERATIVE COMPLICATIONS: None. SUMMARY OF PATHOLOGIC FINDINGS: Upon examination under anesthesia, the patient was loose in flexion and extension consistent with the preoperative diagnosis, radiographs and bone scan showed no evidence of pathology of the hardware. Therefore, the patient was scheduled for polyethylene exchange only. OPERATIVE SUMMARY IN DETAIL: After obtaining the appropriate preoperative orthopedic surgery consent as well as anesthetic consultation, evaluation and clearance, the patient was brought to the operating room and placed on the operating table in a supine position. After general laryngeal mask airway was administered, tourniquet was placed on the proximal aspect of the right upper extremity. Right upper extremity was then prepped and draped in routine sterile fashion. The leg was elevated and exsanguinated, tourniquet inflated to 350 mmHg. An incision utilized previously was taken down. Paramedian arthrotomy was performed. Patella was subluxed laterally. Again, examination was undertaken. Polyethylene was removed. There was a small amount of polyethylene erosion to medial side; however, the distal femoral and proximal tibial components did appear to be in overall good condition. At this point, multiple trials were undertaken and a size 13 was thought to be the most appropriate. The size 13 permanent was then put into place. The knee was taken through range of motion and found to be stable in both flexion and extension as well as anterior and posterior drawer testing. The wound was then irrigated. A gram of vancomycin and gram of tobramycin were placed into the wound. The paramedian arthrotomy was closed with #2 Ethibond by Isaiah Marcum followed by #1 Vicryl, 2-0 Vicryl, and skin closure. Sterile dressings were applied. Tourniquet was deflated. The patient was awakened and taken to recovery room in stable condition. All final needle and sponge counts were correct. TRANSINT:[id number] Voice Confirmation ID: [id number] DOCUMENT ID: [id number] ZEFERINO RIVERA MD at 0724 CC: [id number] DICTATION DATE: 01/15/20 1423 PROFESSOR OF EDUCATION: 01/15/209 ADM IN [place] [id number] [place] [id number]
[2020-01-18] MEDS ORDERED: ASPIRIN EC81 M1 PO (07:49)
[2020-01-18] MEDS ORDERED: HYDROCODON-ACE1 EA10 PO ×3 (07:49→08:04)
[2020-01-18] MEDS ORDERED: ELIQUIS2.5 MG PO ×2 (07:49→07:51)
--- NOTE | 2020-01-18 13:11 | MORECARE ---
CASE MANAGEMENT DISCHARGE SUMMARY PATIENT: MARISA GARZA UNIT: [id number] ADM DATE: 01/15/20 AGE: 84 : 36 SEX: M ROOM/BED: D.1211 AUTHOR: PEDRO,DOC PHYSICIAN: REFERRING PHYSICIAN: ZEFERINO RIVERA MD DATE OF SERVICE: 01/18/20 Discharge Plan Patient Name: MARISA GARZA Facility: [facility]:[place] : 1935 Planned Disposition: Outpatient PT\OT Anticipated Discharge Date: 01/17/20 Discharge Date: 01/18/2020 Expected LOS: 2 Initial Reviewer: [email or web address] Initial Review Date: 01/15/2020 Generated: 01/18/20 2:10 pm Comments DCP- Discharge Planning Updated by [id number]: Nidhi Noguera on 01/16/20 10:[address] CM contacted Cher with [facility] [address] for Op Physical Therapy appointment, spoke with Cher. Appointment Wednesday01/19/20 @1:00 pm. , Fx #[phone]. DCP- Discharge Planning Updated by [email or web address]: Arlette Delong on 01/15/20 4:[address] DC PLAN: Return home with and outpatient physical therapy. ANTICIPATED DC NEEDS: OP PT @ [facility] OP PT [address]. CM met with patient to complete initial dc planning assessment. CM educated patient on the CM role and verbal consent given by patient to complete assessment. CM verified patient's address, phone number, and emergency contact phone numbers. Patient lives at home with his and was independent in his care prior to surgery. At discharge patient plans to return home with his and feels this is a safe discharge. He signed barrera form for [facility] OP Therapy center [address] CM to call tomorrow to make his appointment. He reports his walker, cpm, and bsc have not be delivered to his home prior to surgery. CM called and notified Nisha at Dr. Dalal office and she stated she will call the [email or web address] company to find out why it has not been delivered. Patient denied further known discharge needs at this time. Transportation provider at discharge will be his . CM will continue to follow and will assist as needed with dc plans/needs. Arlette Delong RN, CCM DCPIA - Discharge Planning Initial Assessment Updated by [email or web address]: Arlette Delong on 01/15/20 5:47 pm * Is the patient Alert and Oriented? Yes * PCP Dr. Vides * Pharmacy [facility] * Preadmission Environment Home with Family * ADLs Independent * Other Equipment His equipment has not been delivered - Nisha at Dr. Rivera's office notified. * List name and contact numbers for known caregivers / representatives who currently or will assist patient after discharge: Paz Garza - - [phone] * Verbal permission to speak to the caregivers and representatives has been obtained from the patient. Yes * Additional services required to return to the preadmission environment? Yes * Can the patient safely return to the preadmission environment? Yes * Has this patient been hospitalized within the prior 30 days at any hospital? No Coverage Notice Reviewer: [id number] Saadia Delong Notice Issued Date-Time: 01/15/2020 16:30 Notice Type: IM Admission Notice Notice Delivered To: Patient Relationship to Patient: Secretary To The Vice President Name: Delivery Method: - Aye Days: Prior Verbal Notification: Recipient Understood Notice: Yes Recipient Signature: Yes Med Rec Note Co-signed by Attending: Coverage Notice Comment: IMM delivered, explained, signed by the patient, and placed in his chart. Signed form also left with patient. Arlette Delong RN, CCM Reviewer: [id number] Saadia Delong Notice Issued Date-Time: 01/15/2020 17:05 Notice Type: Patient Choice Letter Notice Delivered To: Patient Relationship to Patient: Secretary To The Vice President Name: Delivery Method: - Aye Days: Prior Verbal Notification: Recipient Understood Notice: Yes Recipient Signature: Yes Med Rec Note Co-signed by Attending: Coverage Notice Comment: BARRERA SIGNED FOR [facility] OP [address] [facility]. Reviewer: [id number] Saadia Noguera Notice Issued Date-Time: 01/17/2020 15:40 Notice Type: IM Discharge Notice Notice Delivered To: Patient Relationship to Patient: Self Secretary To The Vice President Name: Marisa Garza Delivery Method: HAND - Hand Delivered Aye Days: Prior Verbal Notification: Recipient Understood Notice: Yes Recipient Signature: Yes Med Rec Note Co-signed by Attending: Coverage Notice Comment: DC IMM delivered to and signed by the patient. Original givento the patient and one placed on the chart. Last DP export: 01/17/20 3:13 pm Patient Name: MARISA GARZA Page [id number] at 1311 All edits/amendments must be made on the electronic document DICTATION DATE: 01/18/20 1310 DINING ROOM BUSSER: JESUS 01/18/20 1310 RPT#: [id number] DC DATE:01/18/20 STATUS: DIS IN [facility] [address] [place] [address] END OF REPORT
== END 2020-01-18 12:58 | disposition home or self-care (01) | DRG 468 ==
LOC: D.SDCHOLD 01-10 10:00 → D.M3 01-15 08:40 → D.SDCHOLD 01-15 08:40 → D.M3 01-15 14:40
PROVIDERS: ADMIT Orthopaedic Surgery; ATTEND Orthopaedic Surgery
PROC: 0SRC0LZ Replacement of Right Knee Joint with Medial Unicondylar Synthetic Substitute, Open Approach (ICD-10-PCS; 2020-01-15)
PROC: 0SPC0LZ Removal of Medial Unicondylar Synthetic Substitute from Right Knee Joint, Open Approach (ICD-10-PCS; principal; 2020-01-15 11:30)
DX: T84.032A Mechanical loosening of internal right knee prosthetic joint, initial encounter (principal); X58.XXXA Exposure to other specified factors, initial encounter; I10 Essential (primary) hypertension; T84.84XA Pain due to internal orthopedic prosthetic devices, implants and grafts, initial encounter; Z87.891 Personal history of nicotine dependence; Z95.0 Presence of cardiac pacemaker

== ENCOUNTER → 2020-05-02 12:33 | Outpatient (CLI) | payer MEDICARE, OTHER ==
[2020-01-16 13:00] VITALS: BMI 27.3
[~2020-05-02 12:33] MED LIST changes: +ELIQUIS2.5 MG PO; +HYDROCODON-ACE1 EA10 PO
== END | disposition home or self-care (01) ==
LOC: D.CT 05-01 13:30
PROVIDERS: ATTEND Family Medicine
DX: G31.84 Mild cognitive impairment of uncertain or unknown etiology (principal); R42 Dizziness and giddiness

== ENCOUNTER → 2020-07-01 08:40 | Outpatient (CLI) | payer MEDICARE, OTHER ==
[2020-01-16 13:00] VITALS: BMI 27.3
== END | disposition home or self-care (01) ==
LOC: D.HCCARDIO 08:40
PROVIDERS: ATTEND Internal Medicine Cardiovascular Disease
DX: I25.10 Atherosclerotic heart disease of native coronary artery without angina pectoris (principal)

== ENCOUNTER 2021-04-27 22:07 | Inpatient (IN) | payer MEDICARE, OTHER ==
[~2021-04-27] VITALS: Ht 172.7 cm; Wt 77.1 kg
[2021-04-27 22:52] LABS: BASOPHILS 1.4 % (0-2); EOSINOPHILS 5.3 % (0-7); HEMOGLOBIN 14.6 g/dL (13.5-17.5); LYMPHOCYTES 19.4 % (15-50); MCH 30.4 pg (26.0-34.0); MCHC 33.1 g/dL (31.0-37.0); MCV 91.8 fL (80.0-100.0); MEAN PLATELET VOLUME 7.8 fL (7.4-10.4); MONOCYTES 10.1 % (2-11); NEUTROPHILS 63.8 % (40-80); PLATELET COUNT 206 10x3/uL (130-400); RBC 4.79 10x6/uL (4.20-6.10); RDW 14.1 % (11.5-14.5)
[2021-04-27 23:05] LABS: APTT 29.2 SECONDS (22.8-39.4); INR 1.25 (0.85-1.17); PROTIME 14.5 SECONDS (11.6-15.0)
[2021-04-27 23:19] LABS: ALKALINE PHOSPHATASE 44 U/L (30-120); ALT (SGPT) 20 U/L (10-68); BILIRUBIN - TOTAL 0.58 mg/dL (0.2-1.3); CALC OSMOLALITY 283 mosm/kg (275-300); CALCIUM 9.4 mg/dL (8.5-10.1); CHLORIDE - SERUM 104 mmol/L (98-107); CKMB 2.1 U/L (0.0-3.6); CREATINE KINASE 111 UL (21-232); CREATININE - SERUM 1.8 mg/dL (0.6-1.3); GLUCOSE 112 mg/dL (74-106); POTASSIUM - SERUM 4.2 mmol/L (3.5-5.1); PRO BNP 411 pg/mL (0-450); PROTEIN - SERUM 7.2 g/dL (6.4-8.2); SODIUM 140 mmol/L (136-145); UREA NITROGEN 24 mg/dL (7-18); eGFR NON AFRICAN AMERICAN 38 mL/min (90-120)
[2021-04-27 23:22] LABS: TROPONIN-I < 0.017 ng/mL (0.000-0.060)
[2021-04-27 23:32] LABS: CARBON DIOXIDE 27.8 mmol/L (21.0-32.0)
[2021-04-28 01:31] LABS: SARS-CoV-2 ANTIGEN NEGATIVE- SARS-COV-2 (NEGATIVE)
[2021-04-28 08:00] VITALS: BP 159/89
[2021-04-28 10:00] VITALS: BP 171/91
[2021-04-28 12:00] VITALS: BP 170/91
--- NOTE | 2021-04-28 13:52 | NUR ---
ARRIVED TO UNIT VIA GERNEY FROM ED AND ADMITTED TO ROOM 2138.
[2021-04-28 14:24] VITALS: BP 106/83
[2021-04-28 14:36] VITALS: BMI 25.8
[2021-04-28 15:57] VITALS: BP 106/83; Ht 172.7 cm; Wt 77.1 kg
[2021-04-29] VITALS: BP 107/64
--- NOTE | 2021-04-29 03:55 | NUR ---
I have reviewed this patient and I concur with the Shift Assessment completed by the Licensed Practical Nurse today this shift.
[2021-04-29 05:39] LABS: BASOPHILS 0.8 % (0-2); EOSINOPHILS 1.6 % (0-7); HEMATOCRIT 39.1 % (42.0-54.0); HEMOGLOBIN 13.2 g/dL (13.5-17.5); LYMPHOCYTES 10.3 % (15-50); MCH 30.6 pg (26.0-34.0); MCHC 33.7 g/dL (31.0-37.0); MCV 90.9 fL (80.0-100.0); MEAN PLATELET VOLUME 8.2 fL (7.4-10.4); NEUTROPHILS 78.3 % (40-80); PLATELET COUNT 183 10x3/uL (130-400); RDW 13.9 % (11.5-14.5)
[2021-04-29 05:58] LABS: INR 1.19 (0.85-1.17)
[2021-04-29 06:21] LABS: ANION GAP 11.2 mmol/L (8-16); CALCIUM 8.4 mg/dL (8.5-10.1); CARBON DIOXIDE 26.9 mmol/L (21.0-32.0); MAGNESIUM - SERUM 2.1 mg/dL (1.8-2.4); PHOSPHOROUS 2.2 mg/dL (2.5-4.9); POTASSIUM - SERUM 4.1 mmol/L (3.5-5.1)
[2021-04-29 06:23] LABS: CREATININE - SERUM 1.3 mg/dL (0.6-1.3)
[2021-04-29 06:29] LABS: WBC 7.8 10x3/uL (4.8-10.8)
--- NOTE | 2021-04-29 07:30 | NUR ---
Lying in bed, awake/alert/oriented, T/R self ad hilda, cont of B/B with BRPs per self ad hilda, denies pain/other discomfort at this time, call light/phone/water within reach, no s/s of acute distress observed.
[2021-04-29 07:52] VITALS: BP 101/62
[2021-04-29 12:25] VITALS: BP 104/65
[2021-04-29 21:21] VITALS: BP 116/39
[2021-04-30 00:27] VITALS: BP 106/66
--- NOTE | 2021-04-30 04:59 | NUR ---
I have reviewed this patient and I concur with the Shift Assessment completed by the Licensed Practical Nurse today this shift.
[2021-04-30 06:16] VITALS: BP 101/66
--- NOTE | 2021-04-30 07:30 | NUR ---
PT LYING IN BED WITH EYES CLOSED. RESP EVEN AND UNLABORED. ALERT AND ORIENTED TO PERSON AND PLACE, BUT CONFUSED TO TIME. DENIES NEEDS AT THIS TIME. CLIR. BED IN LOWEST POSITION. SIDE RAILS X2
[2021-04-30 09:00] VITALS: BP 155/83
--- NOTE | 2021-04-30 10:28 | NUR ---
May discontinue Droplet Enhanced Isolation-COVID 19 PCR negative.
[2021-04-30 12:00] VITALS: BP 126/69
--- NOTE | 2021-04-30 12:54 | NUR ---
I have reviewed this patient and I concur with the Shift Assessment completed by the Licensed Practical Nurse today this shift.
[2021-04-30 20:16] VITALS: BP 145/84
[2021-04-30 23:46] VITALS: BP 118/73
--- NOTE | 2021-05-01 02:23 | NUR ---
I have reviewed this patient and I concur with the Shift Assessment completed by the Licensed Practical Nurse today this shift.
[2021-05-01 05:24] VITALS: BP 111/71
--- NOTE | 2021-05-01 07:40 | NUR ---
Lying in bed, awake/alert/oriented, T/R self ad hilda, cont of B/B with BRPs with assist ad hilda, denies pain/other discomfort at this time, call light/phone/water within reach, spouse at bedside, no s/s of acute distress observed.
--- NOTE | 2021-05-01 12:00 | NUR ---
Off unit for procedure in stable condition via bed accompanied by hospital staff and family member, no s/s of acute distress observed.
--- NOTE | 2021-05-01 12:54 | NUR ---
Nutrition Follow-up: S/p bronch, transbronchial needle aspiration of mass, endobronchial brushing, bronchial wash. Has been eating well (75-100% yesterday). No new wt; last wt: 170# (04/28) Last labs on 04/29 Meds reviewed -Rec resume diet when medically feasible. -Pt may benefit from an ST eval. -Monitor wt. -RD will follow up within 5 days.
--- NOTE | 2021-05-01 13:14 | NUR ---
RAYA Hernandez called report, no meds given in recovery, 200 mL of fuids reported from OR.
--- NOTE | 2021-05-01 13:27 | NUR ---
Returned to unit in stable condition via bed accompanied by spouse and hospital staff, no s/s of acute distress observed.
[2021-05-01 16:00] VITALS: BP 115/68
--- NOTE | 2021-05-01 19:30 | NUR ---
RECEIVED REPORT, WILL ASSUME CARE OF PT, DENIES ANY NEEDS AT THIS TIME, BED IS LOW, SRX2, CALL LIGHT IN REACH, WILL CONTINUE PLAN OF CARE
[2021-05-01 20:39] VITALS: BP 140/75
[2021-05-02 01:33] VITALS: BP 134/74
[2021-05-02 06:41] VITALS: BP 132/75
--- NOTE | 2021-05-02 07:40 | NUR ---
Lying in bed, awake/alert/oriented, T/R self ad hilda, cont of B/B with use of urinal/BSC with assist ad hilda, denies pain/other discomfort at this time, call light/phone/water within reach, no s/s of acute distress observed.
[2021-05-02 11:06] VITALS: BP 115/67
[2021-05-02 11:16] VITALS: BP 114/68
--- NOTE | 2021-05-02 12:00 | NUR ---
Provided written/verbal discharge instructions/education to which spouse voiced understanding, discontinued IV access/cardiac telemetry monitoring, no s/s of acute distress observed.
--- NOTE | 2021-05-02 12:10 | NUR ---
DC'd home to self care in stable condition via w/c accompanied by hospital staff and spouse, no s/s of acute distress observed.
--- NOTE | 2021-05-02 16:08 | MORECARE ---
CASE MANAGEMENT DISCHARGE SUMMARY PATIENT: NEWTON GARZA UNIT: [id number] ADM DATE: 04/28/21 AGE: 86 : 37 SEX: M ROOM/BED: D.5089 AUTHOR: PEDRO,TEJAS PHYSICIAN: REFERRING PHYSICIAN: MARY VO MD DATE OF SERVICE: 05/02/21 Case Management Discharge Planning Summary COMMENTS ENTERED DATE: 05/02/21 15:56 CT COMMENT TYPE: Discharge Planning REVIEWER: Mary Chapa CM met with patient to complete discharge planning assessment and offer availability of needed services. Patient states that he lives independently at home with his who is a retired nurse prior to admission. (Paz) is present in room at time of DCP and verified that home environment is safe and has electricity and running water. Patient denies need for transportation and states that they have funds for services and medications if needed. PCP is Dr. Vo and patient uses [facility]. CM offered and discussed home health, rehab services, and need for any medical equipment. Patient did not express need for offered services at this time. Transportation home will be provided by . Patient verbalized understanding of signed forms. IMM served, and signed copy placed on chart. DCP REVIEW SUMMARY ANTICIPATED D/C DATE: 05/02/2021 EXPECTED LOS : 4 CASE STATUS: DCP Initiated INITIAL REVIEW: 04/28/2021 INITIAL REVIEWER: Mary Chapa FINAL DISCHARGE DISPOSITION: : FINAL REVIEWER: FINAL REVIEW DATE: [facility] Focus Questions & Answers QUESTION: ANSWER : PATIENT: NEWTON GARZA ENCOUNTER: [id number] MEDICAL RECORD#: [id number] ADMISSION DATE: 04/28/2021 DISCHARGE DATE: 05/02/2021 ATTENDING MD: MARY LOPEZ : 1935-Osman-04 AGE: 86 MARITAL STATUS: M DC PLAN ID: [id number] FACILITY: [facility] PRINTED ON: 05/02/21 16:08 CT All edits/amendments must be made on the electronic document DICTATION DATE: 05/02/211606 HEALTH SAFETY AND ENVIRONMENT MANAGER: JESUS 05/02/211606 RPT#: [id number] DC DATE:05/02/21 STATUS: DIS IN [facility] [address] [place] [address] END OF REPORT
--- NOTE | 2021-05-05 14:45 | MORECARE ---
CASE MANAGEMENT DISCHARGE SUMMARY PATIENT: NEWTON GARZA UNIT: [id number] ADM DATE: 04/28/21 AGE: 86 : 36 SEX: M ROOM/BED: D.2219 AUTHOR: PEDRO,TEJAS PHYSICIAN: REFERRING PHYSICIAN: MARY VO MD DATE OF SERVICE: 05/05/21 Case Management Discharge Planning Summary COMMENTS ENTERED DATE: 05/02/21 15:56 CT COMMENT TYPE: Discharge Planning REVIEWER: Mary Chapa CM met with patient to complete discharge planning assessment and offer availability of needed services. Patient states that he lives independently at home with his who is a retired nurse prior to admission. (Paz) is present in room at time of DCP and verified that home environment is safe and has electricity and running water. Patient denies need for transportation and states that they have funds for services and medications if needed. PCP is Dr. Vo and patient uses [email or web address]. CM offered and discussed home health, rehab services, and need for any medical equipment. Patient did not express need for offered services at this time. Transportation home will be provided by . Patient verbalized understanding of signed forms. IMM served, and signed copy placed on chart. DCP REVIEW SUMMARY ANTICIPATED D/C DATE: 05/02/2021 EXPECTED LOS : 4 CASE STATUS: DCP Initiated INITIAL REVIEW: 04/28/2021 INITIAL REVIEWER: Mary Chapa FINAL DISCHARGE DISPOSITION: : FINAL REVIEWER: FINAL REVIEW DATE: [facility] Focus Questions & Answers QUESTION: ANSWER : PATIENT: NEWTON GARZA ENCOUNTER: [id number] MEDICAL RECORD#: [id number] ADMISSION DATE: 04/28/2021 DISCHARGE DATE: 05/02/2021 ATTENDING MD: MARY LOPEZ : 1935-Osman-04 AGE: 86 MARITAL STATUS: M DC PLAN ID: [id number] FACILITY: [facility] PRINTED ON: 05/05/21 14:45 CT All edits/amendments must be made on the electronic document DICTATION DATE: 05/05/[address] STRE[address] LIGHT CLEANER: JESUS 05/05/21 144 RPT#: [id number] DC DATE:05/02/21 STATUS: DIS IN [facility] [address] [place] [address] END OF REPORT
== END 2021-05-02 12:10 | disposition home or self-care (01) | DRG 180 ==
LOC: D.ER 22:07 → D.EDHOLD 04-28 02:34 → D.M2 04-28 02:34
PROVIDERS: Family Medicine; Internal Medicine Pulmonary Disease; ADMIT Family Medicine; ATTEND Family Medicine
PROC: 0BDK8ZX Extraction of Right Lung, Via Natural or Artificial Opening Endoscopic, Diagnostic (ICD-10-PCS; principal; 2021-05-01 11:30)
DX: C34.91 Malignant neoplasm of unspecified part of right bronchus or lung (principal); J96.00 Acute respiratory failure, unspecified whether with hypoxia or hypercapnia; R04.2 Hemoptysis; Z20.822 Contact with and (suspected) exposure to COVID-19; J44.9 Chronic obstructive pulmonary disease, unspecified; Z87.891 Personal history of nicotine dependence; Z85.89 Personal history of malignant neoplasm of other organs and systems